=== PATIENT | female | born 1985 | race Caucasian/White ===

== ENCOUNTER 2020-12-26 10:52 | Emergency (ER) | payer MEDICARE, OTHER, SELFPAY ==
[2020-12-26 11:12] VITALS: BP 134/82; PULSE 104; RESP 19; TEMP 36.9; O2SAT 98; BMI 35.4
--- NOTE | 2020-12-26 11:25 | XR_ITS ---
WS: [id number] PORTABLE CHEST HISTORY: dyspnea COMPARISON: None available. Dual lead LEFT subclavian cardiac pacer. There is a loop recorder present. Lungs are clear and well expanded. No pleural effusion or pneumothorax. Cardiac size: Normal. Mediastinum/Aorta: Normal mediastinum. No osseous abnormality seen. XR/XR chest 1V portable [id number] IMPRESSION: Unremarkable portable chest.
[2020-12-26 11:39] VITALS: BP 127/76; PULSE 98; RESP 13; TEMP 36.8; O2SAT 96
[2020-12-26 11:41] VITALS: O2SAT 96
--- NOTE | 2020-12-26 12:06 | W.ED.GENADLT ---
HPI - General Adult General: Chief complaint: COVID symptoms Stated complaint: covid sx:cough,avis,throat pain,lungs burning Time Seen by Provider: 12/26/20 11:24 History of Present Illness: HPI narrative: CC: Shortness of breath, fever and generalized weakness HPI: This is a [35]yo patient w/ hx of SLE, pacemaker dependence, prior hospitalization for covid in August presenting to the ED with malaise, generalized weakness, coughm and fever at home x 3days. Since onset of symptoms, has had some shortness of breath and decreased PO intake. NO recent travel. Endorses no sick contacts around. Denies nausea/vomiting/diarrhea. Denies chest pain, diaphoresis, other GI or complaints. Denies any pleuritic chest pain, recent surgery/immobilization/travel, or hematemesis or hx of VTE in the past. Onset: 3 days ago Duration: ongoing for the last 3 days Location: home Severity: moderate Review of Systems Narrative: Constitutional: +subjective fever, +generalized weakness HEENT: No vision changes CV: No chest pain, no palpitations PULM: +cough, +dyspnea. GI: No abdominal pain, no N/V/D. : No dysuria MSKEL: No muscle pain SKIN: No new rashes, no lesions. NEURO: No headache, no focal weakness. HEME: No visible bruises PSYCH: Normal mood Physical Exam Narrative: EXAM NARRATIVE: Head: Atraumatic Eyes: PERRL, conjunctiva without injection ENT: Mucous membrane moist NECK: Supple without lymphadenopathy LUNGS: Coarse lung sounds, tachypnea, no crackles/wheezes/rhonchi on exam CV: RRR ABDOMEN: Soft, nontender EXTREMITY: Normal ROM SKIN: No rash or erythema NEURO: Awake and alert. No focal motor deficits. PSYCH: Normal mood and affect. Course Vital Signs: Vital signs: Vital Signs Temperature 98.3 F 12/26/20 11:39 Pulse Rate 98 12/26/20 11:39 Respiratory Rate 13 12/26/20 11:39 Blood Pressure 127/76 12/26/20 11:39 Pulse Oximetry 96 12/26/20 11:41 MDM - General Adult MDM Narrative: Medical decision making narrative: [35]yo patient presenting to the ED with shortness of breath, cough, and malaise concerning for pneumonia with findings of fever, decreased/junky breath sounds, and tachypnea. Workup today includes XR chest Defer lab work at this time given that the patient is well appearing with stable vital signs and without recent hospitalization or care facility stay. Given History, Exam, and Workup presentation most consistent with pneumonia.Presentation not consistent with PE, COPD exacerbation, Pneumothorax, TB, Atypical ACS, Esophageal Rupture, Toxic Exposure, Foreign Body Airway Obstruction. Workup: CXR Chest, COVID antigen/ COVID PCR send out, influenza Intervention: Tylenol 1gram, PO challenge, IVF Covid test pending. Have discussed with patient to follow-up with PCR tomorrow. X-ray chest did not show any signs of focal consolidations or findings. Influenza negative. Patient received 1 L IVF with improvement in heart rate. Patient is able to tolerate p.o. at this present time, I do not suspect acute decompensation. I have discussed the workup today with patient who agrees to go home with serial observation. I have give patient strict return precautions for any worsening symptoms including worsening dyspnea, exertional dyspnea, cough, chest pain, dehydration, or any other concerns that patient may have. Disposition: Discharge. Patient is given strict follow up with PCP in 24-48 hrs for reassessment. Patient agrees with everything discussed today. Lab Data: Labs: Lab Results 12/26/20 11:40 Influenza Type A A g Negative (Negative) Influenza Type B A g Negative (Negative) Imaging Data^: Other Imaging: Radiologist's impression: [address] [id number] ReportSigned Patient: Hui Alvarenga #: [id number]: 1985Acct#:[id number]/Sex: 35 / FADM Date: 12/26/20Loc: ERRoom/Bed:Attending Dr: Ordering Provider/Ordering MD: Golden Navarro MD Date of Service: 12/26/20 Procedure(s): XR chest 1V portable [id number] Accession Number(s): [id number] Report Number: [id number] WS: [id number] PORTABLE CHEST HISTORY: dyspnea COMPARISON: None available. Dual lead LEFT subclavian cardiac pacer. There is a loop recorder present. Lungs are clear and well expanded. No pleural effusion or pneumothorax. Cardiac size: Normal. Mediastinum/Aorta: Normal mediastinum. No osseous abnormality seen. XR/XR chest 1V portable [id number] IMPRESSION: Unremarkable portable chest. Dictated By:Barbara Wallace DOSigned By:Barbara Wallace DOSigned Date/Time:12/26/20 1202DD/ 1200 Discharge Plan Discharge Patient Disposition: Home Clinical Impression: Cough, Malaise, Nasal congestion Condition: Stable Prescriptions: New acetaminophen 500 mg tablet 500 mg PO Q6H PRN (Reason: pain) 5 Days Qty: 20 RF: 0 Discharge Orders: Discharge ED (Routine); Ordered 12/26/20 Ordered By: Golden Navarro Discharge Diet: Advance as tolerated Discharge Activity: Resume usual activity Patient Instructions: Acute Cough (ED) Activity Restrictions/Additional Instructions: Coem back to the emergency room recall for system if any fever or chills, if you have any new concerning complaints. Please follow-up with a primary care provider in the next 24 to 48 hours. Your Covid test will come back in the next few days. Our rn case manager hospice will have you follow-up with a primary care provider in the next few days. You would be expected to have a phone call with our rn case manager hospice who will put you on the schedule. Coding Level of Care Code ED Knife Edger for Halley Brooks
[2020-12-26 12:20] LABS: Influenza A by IFA Negative (Negative); Influenza B by IFA Negative (Negative)
[2020-12-26] MEDS: acetaminophen 500 mg Tablet 1000 MG PO (12:27)
[2020-12-26] MEDS: sodium chloride 0.9% 1,000 ML 999 ML IV (12:28)
[2020-12-26 14:41] LABS: SARS Covid-2 Antigen Negative (Negative)
[2020-12-27 13:23] LABS: Quest SARS-CoV-2 RNA NOT DETECTED (NOT DETECTED)
--- NOTE | 2020-12-27 16:30 | PC.NURSE ---
Patient notified of negative COVID result
--- NOTE | 2020-12-31 11:20 | DCPLANNER ---
district manager had message to speak with patient about getting established with a primary care physician. district manager called phone number [phone], unable to speak with patient at this time, a voicemail was left for patient to return egg caser phone call.
== END 2020-12-26 14:34 | disposition home or self-care (01) ==
PROVIDERS: Emergency Provider Emergency Medicine
DX: R05.9 Cough, unspecified (principal); R53.81 Other malaise; R09.81 Nasal congestion; Z20.822 Contact with and (suspected) exposure to COVID-19
CPT/HCPCS: 71045; 87426; 87635; 87804; 96360; 96361; 99284; 99291; J7030

== ENCOUNTER → 2021-04-23 14:36 | Outpatient (BNVA) | payer MEDICARE, OTHER, SELFPAY | PROVIDERS: Visit Provider Nurse Practitioner Family | DX: J02.9 Acute pharyngitis, unspecified (principal) | CPT/HCPCS: 87880 ==

== ENCOUNTER → 2021-05-13 10:10 | Outpatient (BNVA) | payer MEDICARE, OTHER, SELFPAY | PROVIDERS: Visit Provider Nurse Practitioner Family | DX: J02.9 Acute pharyngitis, unspecified (principal); Z20.822 Contact with and (suspected) exposure to COVID-19 | CPT/HCPCS: 87071; 87635; 87880 ==

== ENCOUNTER 2021-07-23 12:18 | Emergency (ER) | payer MEDICARE, MEDICAID, OTHER, SELFPAY ==
[2021-07-23 12:21] VITALS: BP 141/88; PULSE 101; RESP 14; TEMP 37.4; O2SAT 99; BMI 38.3
--- NOTE | 2021-07-23 12:39 | W.ED.SKABFB ---
HPI - Skin/Abscess/Foreign Bdy General: Chief complaint: General Medical Stated complaint: right eye swelling Time Seen by Provider: 07/23/21 12:28 Source: patient Mode of arrival: ambulatory Limitations: no limitations History of Present Illness: Patient is a 35-year-old female who presents to ED today with a complaint of right facial rash and swelling. Patient states yesterday she was outside in her [place] maintaining several acres of property and cutting trees and states when she awoke this morning she noticed some mild inferior periorbital swelling. She states since that time she has noticed worsening swelling and redness/rash. Patient has been treating with Benadryl at home without much relief. She has no ear pain. Dental pain. No neck swelling. MD complaint: rash Onset (ago): day(s) Tetanus up to date: yes Location: face Severity: mild Quality: burning Pain Consistency: constant Relieving factors: none Exacerbating factors: none Context: other (outside in field/[place] yesterday) Associated symptoms: Deny chills, fever(s), nausea or vomiting Treatments prior to arrival: Benadryl Review of Systems Const: Denies: fever(s), chills, body aches, fatigue or malaise Eyes: Denies: change in vision, blurry vision, photophobia, eye discomfort, eye discharge or eye redness ENMT: Reports: other (facial rash/swelling); Denies: throat pain, odynophagia, dental pain, ear or mastoid pain, ear discharge, nasal discharge, nasal congestion or post nasal drip Card: Denies: chest pain Resp: Denies: dyspnea GI: Denies: nausea or vomiting Musc: Denies: neck pain, back pain, extremity pain or joint pain Skin/Breast: Denies: rash Neuro: Denies: headache(s), numbness in extremities, weakness in extremities or sensory changes PFS ED PFSH: Surgical History History of permanent cardiac pacemaker placement Social History Smoking and tobacco status: current every day smoker Second hand smoke exposure: No Smoking risk assessment/counseling performed?: Yes Alcohol intake: never Desire information about alcohol rehabilitation?: No Counseling given: No Desire information about substance/drug rehabilitation?: No Counseling given: No Adopted: No Caregiver/support person: No Lives independently: Yes Housing: House Physical Exam Const: COMMON NORMALS: no acute distress, patient oriented x3, no limitations and alert GENERAL APPEARANCE: cooperative NUTRITIONAL APPEARANCE: obese ORIENTATION/CONSCIOUSNESS: Yes awake, Yes oriented to person, Yes oriented to place and Yes oriented to time HENMT: COMMON NORMALS: normocephalic, atraumatic, hearing grossly normal bilaterally, external ears normal, EAC's normal, TM's normal bilaterally, Normal external nose present, Normal nasal mucous membranes and turbinates present, moist oral mucous membranes, oropharynx normal, dentition normal and gingiva normal HEAD & SCALP: normal to inspection, normocephalic and atraumatic FACE & SINUS: sinuses nontender, erythema and edema; no crepitus and no ecchymosis FACE & SINUS IMAGES: 1. very mild swelling; erythematous rash that is not warm to touch NOSE: Normal external nose present and Normal nasal mucous membranes and turbinates present EXTERNAL EAR: Yes external ears normal EXTERNAL AUDITORY CANAL: EAC's normal TYMPANIC MEMBRANE: TM's normal bilaterally MOUTH: Normal oral and palatal mucosa present, lip normal and tongue normal THROAT: posterior oropharynx normal, tonsils normal and uvula midline Eye: GENERAL EYE: appearance normal, both eyes and all related structures OTHER: mild R inferior periorbital swelling Neck/C-Spine: COMMON NORMALS: full ROM, no lymphadenopathy and no meningeal signs Neuro: COMMON NORMALS: patient oriented x3 SENSORIUM/ORIENTATION: Yes alert, Yes oriented to person, Yes oriented to place and Yes oriented to time MENINGEAL SIGNS: Yes no meningeal signs Course Vital Signs: Vital signs: Vital Signs Temperature 99.3 F 07/23/21 12:21 Pulse Rate 101 H 07/23/21 12:21 Respiratory Rate 14 07/23/21 12:21 Blood Pressure 141/88 07/23/21 12:21 Pulse Oximetry 99 07/23/21 12:21 MDM - Skin/Abscess/Foreign Bdy Medicial Decision Making Rash beginning following being outside yesterday working in the [employer]. DDx includes allergic/contact dermatitis, facial cellulitis, and malar rash/photosensitivity reaction given her history of lupus. I do not see anything on physical exam that would make me favor facial cellulitis. Recommend placing patient on a steroid taper. She seems unhappy that I am not able to pinpoint a clear diagnosis for her rash. She is requesting that I do a swab or imaging of some sort to figure it out . I explained to patient that often times medical diagnoses are clinical. I tried to explain to her that often times clinicians use a combination of thorough history and physical examination to determine etiology and how unfortunately sometimes there are not specific tests (i.e swabs, imaging in this case) to help. There is nothing drainable for a swab/culture. CT scan would not yield any further insight into etiology. Ultimately patient was okay with treating with IM/PO steroids with return to ED precautions. Discharge Plan Discharge Patient Disposition: Home Clinical Impression: Facial dermatitis Condition: Stable Prescriptions: New prednisone 10 mg tablet 10 mg PO DAILY 10 Days Qty: 27 0RF Rx Instructions: 6 tabs on days 1-2, 5 tabs on days 3, 4 tabs on day 4, 3 tabs on day 5, 2 tabs on day 6, 1 tab on day 7 Discontinued clindamycin HCl 300 mg capsule 300 mg PO TID 7 Days Qty: 21 0RF Discharge Orders: Discharge ED (Routine); Ordered 07/23/21 Ordered By: Colleen Kerr Coding Level of Care Code ED Manager Of Financial Reporting for Chg Fwd Exam Expanded Problem Focused
== END 2021-07-23 13:18 | disposition home or self-care (01) ==
PROVIDERS: Emergency Provider Physician Assistant
DX: L30.9 Dermatitis, unspecified (principal)
CPT/HCPCS: 96372; 99283; J2930

== ENCOUNTER 2021-08-25 11:37 | Emergency (ER) | payer MEDICARE, MEDICAID, OTHER, SELFPAY ==
[2021-08-25 11:47] VITALS: BP 136/86; PULSE 82; RESP 18; TEMP 36.3; O2SAT 98; BMI 42.2
--- NOTE | 2021-08-25 11:59 | CT_ITS ---
WS: [id number] CT HEAD TECHNIQUE: Noncontrast CT of the head obtained from the skullbase to the vertex. CLINICAL INFORMATION: closed ehd injury COMPARISON: None. DLP: 1041.[address] scans at [facility] use at least one of these dose optimization techniques: automated e xposure control; mA and/or kV adjustment per patient size (includes targeted exams where dose is matc hed to clinical indication); or iterative reconstruction. FINDINGS: No evidence of intracranial hemorrhage or mass effect. Ventricular system and basal cisterns are alcocer nt. No extra-axial fluid collections. No evidence of mass or mass effect. Normal de la o-white different iation. Paranasal sinuses and mastoid air cells are well aerated. .Normal visualized soft tissues. CT/CT head wo con* [id number] IMPRESSION: 1. No evidence of intracranial hemorrhage or mass effect. 2. No acute intracranial findings.
--- NOTE | 2021-08-25 11:59 | XRR_ITS ---
PROCEDURE INFORMATION: Exam: XR Cervical Spine Exam date and time: 08/25/2021 12:12 PM Age: 35 years old Clinical indication: Injury or trauma; Fall; Blunt trauma TECHNIQUE: Imaging protocol: Radiologic exam of the cervical spine. Views: 2 or 3 views. COMPARISON: CR XR chest 1V portable [id number] 12/26/2020 11:43 AM FINDINGS: Bones/joints: Normal. No acute fracture. Normal alignment. Soft tissues: Unremarkable. XR/XR cervical spine 3V* [id number] IMPRESSION: No acute findings.
[2021-08-25 12:15] LABS: Basophils # 0.1 10^3/uL (0.0-0.1); Basophils % 0.7 %; Eosinophils # 0.2 10^3/uL (0.0-0.8); Eosinophils % 1.5 %; Hematocrit 39.7 % (37.0-47.0); Hemoglobin 13.1 g/dL (11.5-15.3); Lymphocytes # 2.8 10^3/uL (0.8-4.8); Mean Corpuscular Volume 87.8 fl (81-99); Mean Platelet Volume 11.5 fL (7.4-10.4); Monocytes # 0.7 10^3/uL (0.2-0.9); Monocytes % 6.5 %; Neutrophils # 6.51 10^3/uL (1.8-7.7); Neutrophils % 63.8 %; Nucleated Red Blood Cells % 0 %; Platelet Count 248 10^3/cmm (130-400); Red Blood Count 4.52 10^6/uL (4.1-5.3); Red Cell Distribution Width 13.5 % (12.1-15.1); White Blood Count 10.2 10^3/uL (4.0-10.0)
[2021-08-25 12:25] VITALS: BP 159/81; RESP 16; O2SAT 98
--- NOTE | 2021-08-25 12:37 | W.ED.FALL ---
HPI - Fall General: Chief Complaint: Fall Stated Complaint: Fall, Hit head, neck pain Time Seen by Provider: 08/25/21 11:59 Source: patient Mode of arrival: ambulatory History of Present Illness: 35-year-old female fell yesterday when she slipped outside on some wet ground landed on her back hit her head unsure if she lost consciousness she thinks she may have this morning she is more stiff particular in her neck. No vomiting no vision changes MD complaint: fall Onset (ago): day(s) (1) Fall from: standing Fall witnessed: yes, by family Place fall occurred: home Loss of consciousness: Unsure Prolonged down time: no Context: tripped/slipped Location of injury: head Associated symptoms-after fall: Denies abdominal pain or chest pain Review of Systems Const: Denies: fever(s), chills, body aches, change in appetite, fatigue or malaise ENMT: Denies: throat pain, ear or mastoid pain, nasal discharge or nasal congestion Card: Denies: chest pain, edema, dyspnea on exertion or orthopnea Resp: Denies: dyspnea, productive cough or non-productive cough GI: Denies: abdominal pain, nausea, vomiting, hematemesis, coffee ground emesis, diarrhea, constipation, bloating, hematochezia or melena : Denies: flank pain, difficulty voiding, dysuria, urinary frequency or urinary urgency Skin/Breast: Denies: rash or pruritus PFS ED PFSH: Medical History (Updated 08/25/21 @ 14:38 by Jose L Swan DO) Lupus Surgical History History of permanent cardiac pacemaker placement Social History Smoking and tobacco status: current every day smoker Second hand smoke exposure: No Smoking risk assessment/counseling performed?: Yes Alcohol intake: never Desire information about alcohol rehabilitation?: No Counseling given: No Desire information about substance/drug rehabilitation?: No Counseling given: No Adopted: No Caregiver/support person: No Lives independently: Yes Housing: House Physical Exam Const: GENERAL APPEARANCE: cooperative and comfortable ORIENTATION/CONSCIOUSNESS: Yes awake, Yes oriented to person, Yes oriented to place and Yes oriented to time HENMT: COMMON NORMALS: normocephalic, atraumatic and hearing grossly normal bilaterally HEAD & SCALP: normocephalic and atraumatic Neck/C-Spine: COMMON NORMALS: no JVD Resp: COMMON NORMALS: normal respiratory effort, No retractions, No use of accessory muscles and clear to auscultation bilaterally AUSCULTATION: clear to auscultation bilaterally Cardio: COMMON NORMALS: no JVD, regular rate, regular rhythm and No murmurs present (Cardio) RATE: regular rate RHYTHM: regular rhythm GI: COMMON NORMALS: Soft to palpation and No hepatosplenomegaly present AUSCULTATION: Yes normoactive bowel sounds PALPATION: Yes Soft to palpation, No Tenderness to palpation present (GI), No Guarding due to palpation present (GI) and Yes No hepatosplenomegaly present Extremity: COMMON NORMALS: normal to inspection, capillary refill normal, no clubbing, cyanosis or edema, no calf tenderness and no pedal edema Neuro: SENSORIUM/ORIENTATION: Yes oriented to person, Yes oriented to place and Yes oriented to time OTHER: Neurologically intact no focal logic deficits are noted Skin: COMMON NORMALS: no rashes or lesions noted GENERAL SKIN EXAM: no rashes or lesions noted Course Vital Signs: Vital signs: Vital Signs Temperature 97.3 F L 08/25/21 11:47 Pulse Rate 84 08/25/21 15:11 Respiratory Rate 18 08/25/21 14:25 Blood Pressure 124/90 08/25/21 15:11 Pulse Oximetry 100 08/25/21 15:11 MDM - Fall Medical Decision Making Labs and imaging reviewed. No fractures no intracranial bleeding that she is a mild concussion and sick fairly significant cervical strain. She has no upper extremity radiculopathy at this point treat conservatively with medicines rest she can wear soft collar if she feels it is a cyst however I did warn her not to wear it for too long as it can actually prolong recovery by weakening muscles. Follow-up with primary care if symptoms persist or worsen consider advanced imaging and/or possibly referral to physical therapy. Medical Records I reviewed the patient's medical records. Lab Data I reviewed the patient's lab results. : 08/25/21 12:10 08/25/21 12:10 Radiology Impressions Cervical Spine X-Ray 08/25/21 11:59 IMPRESSION: No acute findings. Head CT 08/25/21 11:59 IMPRESSION: 1. No evidence of intracranial hemorrhage or mass effect. 2. No acute intracranial findings. Laboratory Results WBC 10.2 10^3/uL (4.0-10.0) H 08/25/21 12:10 RBC 4.52 10^6/uL (4.1-5.3) 08/25/21 12:10 Hgb 13.1 g/dL (11.5-15.3) 08/25/21 12:10 Hct 39.7 % (37.0-47.0) 08/25/21 12:10 MCV 87.8 fl (81-99) 08/25/21 12:10 MCH 29.0 pg (28.0-34.0) 08/25/21 12:10 MCHC 33.0 g/dL (30.0-36.0) 08/25/21 12:10 RDW 13.5 % (12.1-15.1) 08/25/21 12:10 Plt Count 248 10^3/cmm (130-400) 08/25/21 12:10 MPV 11.5 fL (7.4-10.4) H 08/25/21 12:10 Neut % (Auto) 63.8 % 08/25/21 12:10 Lymph % (Auto) 27.0 % 08/25/21 12:10 [place] % (Auto) 6.5 % 08/25/21 12:10 Eos % (Auto) 1.5 % 08/25/21 12:10 Baso % (Auto) 0.7 % 08/25/21 12:10 Neut # (Auto) 6.51 10^3/uL (1.8-7.7) 08/25/21 12:10 Lymph # (Auto) 2.8 10^3/uL (0.8-4.8) 08/25/21 12:10 [place]ilion # (Auto) 0.7 10^3/uL (0.2-0.9) 08/25/21 12:10 Eos # (Auto) 0.2 10^3/uL (0.0-0.8) 08/25/21 12:10 Baso # (Auto) 0.1 10^3/uL (0.0-0.1) 08/25/21 12:10 Nucleated RBC % (auto) 0 % 08/25/21 12:10 Nucleated RBCs # 0.0 /100WBC 08/25/21 12:10 Sodium 136 mmol/L (136-145) 08/25/21 12:10 Potassium 4.0 mmol/L (3.5-5.1) 08/25/21 12:10 Chloride 103 mmol/L (98-107) 08/25/21 12:10 Carbon Dioxide 23 mmol/L (22-29) 08/25/21 12:10 Anion Gap 14.0 (5-19) 08/25/21 12:10 BUN 10 mg/dL (6-20) 08/25/21 12:10 Creatinine 0.7 mg/dL (0.5-0.9) 08/25/21 12:10 GFR Calculation 94.7 mL/min (90-130) 08/25/21 12:10 Glucose 151 mg/dL (65-115) H 08/25/21 12:10 Calculated Osmolality 284 mOsm/kg (285-295) L 08/25/21 12:10 Calcium 8.7 mg/dL (8.5-10.5) 08/25/21 12:10 Discharge Plan Discharge Patient Disposition: Home Clinical Impression: Cervicalgia, Concussion Condition: Stable Prescriptions: New hydrocodone-acetaminophen 5-325 mg tablet 1 tab PO Q6H PRN (Reason: pain) Qty: 10 0RF prednisone 20 mg tablet 20 mg PO TID Qty: 15 0RF Rx Instructions: 1 p.o. 3 times daily x3 days, 1 p.o. twice daily x2 days, 1 p.o. daily x2 days diclofenac sodium 75 mg tablet,delayed release (DR/EC) 75 mg PO Q12H PRN (Reason: pain) Qty: 20 0RF tizanidine 4 mg capsule 4 mg PO Q6H PRN (Reason: muscle spasticity) Qty: 30 0RF Rx Instructions: do not exceed 3 doses per 24 hrs Discharge Orders: Discharge ED (Routine); Ordered 08/25/21 Ordered By: Jose L Swan Discharge Diet: Usual diet Patient Instructions: Opioid Safety Activity Restrictions/Additional Instructions: Pain in her neck is caused by the fall and is from musculoskeletal source. If symptoms persist follow-up with primary care doctor they can reevaluate as appropriate. In the meantime you can use medications that were prescribed today for symptom relief. If you like and you find it helpful you can use a soft cervical collar for 3 to 5 days. Avoid prolonged use as it can prolong the recovery. Coding Level of Care Code ED Pattern Drum Maker for Chg Fwd Exam Comprehensive
[2021-08-25 12:45] LABS: Blood Urea Nitrogen 10 mg/dL (6-20); Calcium 8.7 mg/dL (8.5-10.5); Carbon Dioxide 23 mmol/L (22-29); Chloride 103 mmol/L (98-107); Glomerular Filtration Rate 94.7 mL/min (90-130); Glucose 151 mg/dL (65-115); Osmolality Calculated 284 mOsm/kg (285-295); Sodium 136 mmol/L (136-145)
[2021-08-25] MEDS: orphenadrine 30 mg/mL Inj 2 mL 60 MG IVP (12:52)
[2021-08-25] MEDS: ketorolac 30 mg/mL INJ IVP (12:52)
[2021-08-25 13:25] VITALS: BP 155/96; RESP 16; O2SAT 98
[2021-08-25 14:25] VITALS: BP 124/90; RESP 18; O2SAT 98
[2021-08-25 15:11] VITALS: BP 124/90; PULSE 84; O2SAT 100
== END 2021-08-25 15:13 | disposition home or self-care (01) ==
PROVIDERS: Emergency Provider Family Medicine
DX: S06.0X9A Concussion with loss of consciousness of unspecified duration, initial encounter (principal); W01.0XXA Fall on same level from slipping, tripping and stumbling without subsequent striking against object, initial encounter; M54.2 Cervicalgia
CPT/HCPCS: 70450; 72040; 80048; 85025; 96374; 96375; 99284; J1885; J2360

== ENCOUNTER 2022-03-29 09:16 | Outpatient (CLI) | payer MEDICARE, OTHER, SELFPAY ==
--- NOTE | 2022-03-29 09:32 | US_ITS ---
WS: [id number] RIGHT UPPER QUADRANT ULTRASOUND HISTORY: ELEVATED LIVER FUNCTION TESTS COMPARISON: None available. Technically difficult evaluation of the RIGHT upper quadrant. Liver: 17.7 cm in length. Mildly enlarged liver with marked attenuation from hepatic steatosis. The e ntire liver is not well visualized. No bile duct dilatation. Portal Vein: Normal hepatopetal flow with monophasic waveform. Gallbladder: Normally distended gallbladder with no stones or wall thickening. CBD: 0.3 cm Pancreas: Tail is obscured. No pancreatic duct enlargement identified. Right kidney: 11.4 cm in length. Normal size and echogenicity. No hydronephrosis or mass. Aorta and IVC: Unremarkable abdominal aorta and IVC. No ascites. US/US gall bladder [id number] IMPRESSION: 1. Mild hepatomegaly with severe attenuation which is probably from hepatic st eatosis. The entire liver is not well visualized. 2. Negative gallbladder.
== END 2022-03-29 09:17 | disposition home or self-care (01) ==
PROVIDERS: PCP Nurse Practitioner Family; Visit Provider Nurse Practitioner Family
DX: R79.89 Other specified abnormal findings of blood chemistry (principal)
CPT/HCPCS: 76705

== ENCOUNTER → 2022-03-31 10:13 | Outpatient (BNVA) | payer MEDICARE, OTHER, SELFPAY | PROVIDERS: PCP Nurse Practitioner Family; Visit Provider Podiatrist Foot & Ankle Surgery | DX: M65.9 Synovitis and tenosynovitis, unspecified (principal); M21.622 Bunionette of left foot | CPT/HCPCS: 73630; 99204 ==

== ENCOUNTER 2022-04-12 15:23 | Outpatient (CLI) | payer MEDICARE, OTHER, SELFPAY | END 2022-04-12 15:24 | disposition home or self-care (01) | LOC: SPT 15:24 | PROVIDERS: PCP Nurse Practitioner Family; Visit Provider Podiatrist Foot & Ankle Surgery | DX: Z46.89 Encounter for fitting and adjustment of other specified devices (principal); M79.672 Pain in left foot; M65.9 Synovitis and tenosynovitis, unspecified; M19.072 Primary osteoarthritis, left ankle and foot; M65.872 Other synovitis and tenosynovitis, left ankle and foot; M21.622 Bunionette of left foot | CPT/HCPCS: 97760; 99214; L4397 ==

== ENCOUNTER 2022-04-20 10:11 | Emergency (ER) | payer MEDICARE, OTHER, SELFPAY ==
--- NOTE | 2022-04-20 10:16 | XR_ITS ---
WS: [id number] Left ankle, 3 views, 04/20/2022 Clinical Data: pain Comparison: None. Findings: No fractures or dislocations are seen. The ankle mortise is normal. The talus and calcaneus are unrem arkable. No soft tissue swelling over the medial or lateral malleolus is seen. There is a plantar spur. XR/XR ankle LT min 3V* [id number] Impression: Negative left ankle.
--- NOTE | 2022-04-20 10:16 | XR_ITS ---
WS: [id number] Left foot, 3 views, 04/20/2022 Clinical Data: pain Comparison: None. Findings: No new fractures or dislocations are seen. No bone destruction or erosion is noted. The joint spaces and soft tissues are normal. There is deformity of the distal left fifth metatarsal which may be from an old fracture. There is a plantar spur. XR/XR foot LT min 3V* [id number] Impression: Probable old healed left distal fifth metatarsal fracture.
[2022-04-20 10:20] VITALS: BP 141/89; PULSE 92; TEMP 36.6; O2SAT 98; BMI 38.9
[2022-04-20 10:31] VITALS: BP 139/106; PULSE 92; RESP 16; O2SAT 98
[2022-04-20 11:23] VITALS: BP 125/74
--- NOTE | 2022-04-20 12:01 | ED_ITS ---
HPI - Extremity Problem General: Chief complaint: Extremity Injury, Lower Stated complaint: left foot and ankle pain Time Seen by Provider: 04/20/22 10:12 Source: patient Mode of arrival: ambulatory History of Present Illness: 36-year-old female presents emergency room complaint of left ankle and foot pain. Nurse reported she ambulated to the room. She admits to previous injuries and states she had multiple falls affecting her foot. She has seen podiatry previously as well. They have scheduled her for an MRI but it is a couple of weeks off. She is demanding that an MRI be done emergently in the emergency room. She is not able to identify a recent new injury. Patient has been taking anti-inflammatories but states she cannot take them regularly because she has lupus and she has been told she has a liver issue and should not take many anti-inflammatories. MD Complaint: joint pain Onset (ago): month(s) Pain Consistency: constant Location: left (Ankle-foot) Relieving factors: nothing Exacerbating factors: weight bearing and walking Associated symptoms: Deny rash Review of Systems Musc: Reports: extremity pain and joint pain Skin/Breast: Denies: rash or pruritus PFSH ED PFSH: Medical History Lupus Surgical History History of permanent cardiac pacemaker placement Social History Smoking and tobacco status: current every day smoker Second hand smoke exposure: No Smoking risk assessment/counseling performed?: Yes Alcohol intake: never Desire information about alcohol rehabilitation?: No Counseling given: No Desire information about substance/drug rehabilitation?: No Counseling given: No Adopted: No Caregiver/support person: No Lives independently: Yes Housing: House Physical Exam Const: GENERAL APPEARANCE: cooperative ORIENTATION/CONSCIOUSNESS: Yes awake, Yes oriented to person, Yes oriented to place and Yes oriented to time HENMT: COMMON NORMALS: normocephalic, atraumatic and hearing grossly normal bilaterally HEAD & SCALP: normocephalic and atraumatic Resp: COMMON NORMALS: normal respiratory effort and No use of accessory muscles Extremity: COMMON NORMALS: normal to inspection, capillary refill normal, no clubbing, cyanosis or edema and no pedal edema Neuro: SENSORIUM/ORIENTATION: Yes oriented to person, Yes oriented to place and Yes oriented to time Skin: COMMON NORMALS: no rashes or lesions noted GENERAL SKIN EXAM: no rashes or lesions noted Course Vital Signs: Vital signs: Vital Signs Temperature 97.9 F 04/20/22 10:20 Pulse Rate 92 04/20/22 10:31 Respiratory Rate 16 04/20/22 10:31 Blood Pressure 125/74 04/20/22 11:23 Pulse Oximetry 98 04/20/22 10:31 Oxygen Delivery Me thod 04/20/22 10:31 MDM - Extremity (Nontraumatic) Medical Decision Making X-ray of the ankle and the foot reviewed there is evidence of old fracture in the fifth metatarsal on the left but there is no new fractures. Examination of the foot there is no evidence of swelling or ecchymosis she was ambulatory back to the room without any difficulty according to the nurse. She is quite angry that we are not doing an MRI she has one scheduled for next month there evidently is prior ordered by podiatry. She states it is getting worse but she cannot identify any recent injury she refers to previous injuries but cannot give me a timeframe on the most recent. She feels she cannot ambulate cannot function and something must be done immediately. Offered her posterior splint and crutches she said that would not work she refused to use them she thinks it will make her fall and would not make her functional enough around her home to do tasks she states she needs to do. She asked for a boot/Cam walker. We do not stock those the emergency room she asked if I would write a prescription for 1. I told her we would write a prescription and could not get filled at home but I am not sure the insurance will cover it. Recommend she follow-up with podiatry as scheduled. We will ask case management to get her on the list to have her MRI done sooner if there is a cancellation. Continue previously prescribed medications from podiatry for the her foot pain also gave her a steroid taper. Medical Records I reviewed the patient's medical records. Lab Data Radiology Impressions Ankle X-Ray 04/20/22 10:16 Impression: Negative left ankle. Foot X-Ray 04/20/22 10:16 Impression: Probable old healed left distal fifth metatarsal fracture. Discharge Plan Discharge Patient Disposition: Home Clinical Impression: Ankle sprain and strain Condition: Stable Prescriptions: New Medrol (Brayden) 4 mg tablets,dose pack See Rx Instructions .ROUTE .COMPLEX Qty: 21 0RF Rx Instructions: orally per package directions No Action (DME) night splint See Rx Instructions .Route .MEDSUPPLY Qty: 1 0RF Rx Instructions: As directed (DME) Custom molded orthotics (insoles) See Rx Instructions .Route .MEDSUPPLY Qty: 1 0RF Rx Instructions: As directed by [employer] diclofenac sodium [Voltaren Arthritis Pain] 1 % gel 4 g topical QID 30 Days Qty: 100 2RF Rx Instructions: apply to single knee, ankle, foot; for foot includes sole/toes/top of foot (DME) Cam Boot to the Left See Rx Instructions .Route .MEDSUPPLY Qty: 1 0RF Rx Instructions: As directed hydrocodone-acetaminophen 5-325 mg tablet 1 tab PO Q6H PRN (Reason: pain) Qty: 10 0RF prednisone 20 mg tablet 20 mg PO TID Qty: 15 0RF Rx Instructions: 1 p.o. 3 times daily x3 days, 1 p.o. twice daily x2 days, 1 p.o. daily x2 days diclofenac sodium 75 mg tablet,delayed release (DR/EC) 75 mg PO Q12H PRN (Reason: pain) Qty: 20 0RF tizanidine 4 mg capsule 4 mg PO Q6H PRN (Reason: muscle spasticity) Qty: 30 0RF Rx Instructions: do not exceed 3 doses per 24 hrs Discharge Orders: Discharge ED (Routine); Ordered 04/20/22 Ordered By: Jose L Swan Referrals: Charlene Peraza FNP [Primary Care Provider] - Discharge Diet: Usual diet Discharge Activity: Resume usual activity Activity Restrictions/Additional Instructions: Recommend non-weightbearing due to pain. Follow up with podiatry clinic. Case management will try to move up your MRI if there are any cancellations. Coding Level of Care Code ED Polisher [employer] Buffer for Halley Brooks
--- NOTE | 2022-04-21 08:41 | DCPLANNER ---
heel caser had message to check with centralized scheduling to see if patients MRI could be rescheduled to an earlier date. showroom manager called centralized scheduling and spoke with Lissettea was told that an appointment was available today at 9:30, heel caser called patient and asked patient if she would be able to make an appointment today at 9:30 - patient stated that she would not able to make that appointment. Patients appointment will remain for the previously scheduled appointment.
== END 2022-04-20 11:24 | disposition home or self-care (01) ==
PROVIDERS: Emergency Provider Family Medicine; PCP Nurse Practitioner Family
DX: S93.402A Sprain of unspecified ligament of left ankle, initial encounter (principal); X58.XXXA Exposure to other specified factors, initial encounter
CPT/HCPCS: 73610; 73630; 99283

== ENCOUNTER 2022-04-20 14:22 | Outpatient (CLI) | payer MEDICARE, OTHER, SELFPAY | END 2022-04-20 14:23 | disposition home or self-care (01) | LOC: SPT 14:23 | PROVIDERS: PCP Nurse Practitioner Family; Visit Provider Podiatrist Foot & Ankle Surgery | DX: Z46.89 Encounter for fitting and adjustment of other specified devices (principal); S93.402D Sprain of unspecified ligament of left ankle, subsequent encounter; X58.XXXD Exposure to other specified factors, subsequent encounter | CPT/HCPCS: L4361 ==

== ENCOUNTER → 2022-05-24 09:03 | Outpatient (BNVA) | payer MEDICARE, OTHER, SELFPAY | PROVIDERS: PCP Nurse Practitioner Family; Visit Provider Podiatrist Foot & Ankle Surgery | DX: M65.872 Other synovitis and tenosynovitis, left ankle and foot (principal); M19.072 Primary osteoarthritis, left ankle and foot; M21.622 Bunionette of left foot | CPT/HCPCS: 99213 ==

== ENCOUNTER → 2022-05-25 09:40 | Outpatient (BNVA) | payer MEDICARE, OTHER, SELFPAY | PROVIDERS: PCP Nurse Practitioner Family; Referring Provider Nurse Practitioner Family; Visit Provider Obstetrics & Gynecology | DX: E28.2 Polycystic ovarian syndrome (principal) | CPT/HCPCS: 80053; 83001; 84145; 84403; 84443; 85025 ==

== ENCOUNTER → 2022-06-16 10:48 | Outpatient (BNVA) | payer MEDICARE, OTHER, SELFPAY | PROVIDERS: PCP Nurse Practitioner Family; Visit Provider Obstetrics & Gynecology | DX: Z01.419 Encounter for gynecological examination (general) (routine) without abnormal findings (principal) | CPT/HCPCS: 87624 ==

== ENCOUNTER 2022-07-08 10:47 | Outpatient (CLI) | payer MEDICARE, OTHER, SELFPAY | END 2022-07-08 10:48 | disposition home or self-care (01) | LOC: SPT 10:47 | PROVIDERS: PCP Nurse Practitioner Family; Visit Provider Podiatrist Foot & Ankle Surgery | DX: Z46.89 Encounter for fitting and adjustment of other specified devices (principal); M19.079 Primary osteoarthritis, unspecified ankle and foot; M21.622 Bunionette of left foot; M65.9 Synovitis and tenosynovitis, unspecified | CPT/HCPCS: 97760; L3030 ==

== ENCOUNTER 2022-07-09 09:38 | Outpatient (CLI) | payer MEDICARE, OTHER, SELFPAY ==
--- NOTE | 2022-07-09 09:55 | MM_ITS ---
WS: [id number] DIAGNOSTIC BILATERAL DIGITAL BREAST TOMOSYNTHESIS MAMMOGRAPHY WITH CAD RIGHT breast ultrasound, limited. HISTORY: SCREENING COMPARISON: None available. TECHNIQUE: Bilateral craniocaudad, mediolateral oblique, and mediolateral views are submitted with to mosynthesis and SM. Spot compression RIGHT CC. Computer aided detection utilized. Breast composition: The breasts are almost entirely fatty. Triangular marker is placed along the medi al RIGHT breast at the palpable site. There is no underlying abnormality identified. Normal soft tiss ues. Cardiac loop recorder noted along the posterior medial LEFT breast. There is an additional gener ator for cardiac pacer along the superior LEFT breast. Benign calcification anterior LEFT breast. RIGHT breast: Limited. Ultrasound directed to the 10:00 axis of the RIGHT breast at the palpable site. No mass or distortio n. Normal soft tissues. MM/[place] [id number] IMPRESSION: BI-RADS: 2-Benign FOLLOW UP: 1 Year Follow-up
--- NOTE | 2022-07-09 11:07 | US_ITS ---
WS: [id number] DIAGNOSTIC BILATERAL DIGITAL BREAST TOMOSYNTHESIS MAMMOGRAPHY WITH CAD RIGHT breast ultrasound, limited. HISTORY: SCREENING COMPARISON: None available. TECHNIQUE: Bilateral craniocaudad, mediolateral oblique, and mediolateral views are submitted with to mosynthesis and SM. Spot compression RIGHT CC. Computer aided detection utilized. Breast composition: The breasts are almost entirely fatty. Triangular marker is placed along the medi al RIGHT breast at the palpable site. There is no underlying abnormality identified. Normal soft tiss ues. Cardiac loop recorder noted along the posterior medial LEFT breast. There is an additional gener ator for cardiac pacer along the superior LEFT breast. Benign calcification anterior LEFT breast. RIGHT breast: Limited. Ultrasound directed to the 10:00 axis of the RIGHT breast at the palpable site. No mass or distortio n. Normal soft tissues. US/US breast RT limited* [id number] IMPRESSION: BI-RADS: 2-Benign FOLLOW UP: 1 Year Follow-up
== END 2022-07-09 09:39 | disposition home or self-care (01) ==
LOC: RAD 09:40
PROVIDERS: PCP Nurse Practitioner Family; Visit Provider Nurse Practitioner Family
DX: N63.11 Unspecified lump in the right breast, upper outer quadrant (principal); R92.1 Mammographic calcification found on diagnostic imaging of breast; N63.20 Unspecified lump in the left breast, unspecified quadrant
CPT/HCPCS: 76642; 77062; G0279

== ENCOUNTER 2022-08-12 21:09 | Emergency (ER) | payer MEDICARE, OTHER, SELFPAY ==
[2022-08-12 21:16] VITALS: BP 151/97; PULSE 95; RESP 18; TEMP 36.6; O2SAT 98; BMI 38.9
--- NOTE | 2022-08-12 21:24 | ED_ITS ---
HPI - Dental/Oral General: Chief complaint: Dental/Oral Stated complaint: tooth pain Time Seen by Provider: 08/12/22 21:17 History of Present Illness: 36-year-old female comes in today with complaints of right lower jaw pain. Patient has a third molar that is decayed and has waxed and waned with pain and abscesses. Patient reports over the last 2 days she has had an increase in pain and discomfort. No facial swelling is noted. Patient is managing secretions well. Review of Systems General: Reports: 10 or more systems reviewed and unremarkable except in HPI and below Card: Denies: chest pain Resp: Denies: dyspnea Musc: Reports: extremity pain Skin/Breast: Denies: rash PFSH ED PFSH: Medical History Lupus Surgical History History of permanent cardiac pacemaker placement Physical Exam Const: COMMON NORMALS: alert HENMT: COMMON NORMALS: normocephalic HEAD & SCALP: normocephalic TEETH & GINGIVA: Yes other (Third molar right lower jaw significant decay gingival erythema) Neck/C-Spine: COMMON NORMALS: full ROM Resp: COMMON NORMALS: normal respiratory effort and clear to auscultation bilaterally AUSCULTATION: clear to auscultation bilaterally Cardio: COMMON NORMALS: regular rate and regular rhythm RATE: regular rate RHYTHM: regular rhythm Extremity: COMMON NORMALS: normal to inspection Neuro: SENSORIUM/ORIENTATION: Yes alert Skin: COMMON NORMALS: turgor normal GENERAL SKIN EXAM: turgor normal Course Vital Signs: Vital signs: Vital Signs Temperature 98 F 08/12/22 21:16 Pulse Rate 95 08/12/22 21:16 Respiratory Rate 18 08/12/22 21:16 Blood Pressure 151/97 08/12/22 21:16 Pulse Oximetry 98 08/12/22 21:16 [facility] - Dental/Oral Medical Decision Making 36-year-old female comes in today for complaints right lower jaw pain and discomfort. On exam patient has a carious right third molar with some mild gingival erythema and swelling. Posterior pharynx is normal. Vital signs are normal. Except for some elevated blood pressure. Differential diagnosis includes but not limited to dental caries, dental abscess, tooth ache. No signs of serious illness is noted. Patient is stable. Patient will be started on Augmentin 1 tablet twice a day for 7 days. Patient was given 7 tablets of hydrocodone to use for severe pain. Recommend follow-up with dentist. Return to ED for new concerns. Discharge Plan Discharge Patient Disposition: Home Clinical Impression: Toothache Condition: Stable Prescriptions: New hydrocodone-acetaminophen 5-325 mg tablet 1 tab PO Q8H PRN (Reason: pain (scale score 7-10)) Qty: 7 0RF amoxicillin-pot clavulanate 875-125 mg tablet 1 tab PO BID Qty: 14 0RF No Action metoprolol succinate 25 mg tablet extended release 24 hr 25 mg PO DAILY (DME) night splint See Rx Instructions .Route .MEDSUPPLY Qty: 1 0RF Rx Instructions: As directed medroxyprogesterone [Provera] 10 mg tablet 10 mg PO DAILY Qty: 30 4RF Rx Instructions: take the -10th of the month diclofenac sodium [Voltaren Arthritis Pain] 1 % gel 4 g topical QID 30 Days Qty: 100 2RF Rx Instructions: apply to single knee, ankle, foot; for foot includes sole/toes/top of foot (DME) Sole Supports See Rx Instructions .Route .MEDSUPPLY Qty: 1 0RF Rx Instructions: As directed tizanidine 4 mg capsule 4 mg PO Q6H PRN (Reason: muscle spasticity) Qty: 30 0RF Rx Instructions: do not exceed 3 doses per 24 hrs Discharge Orders: Discharge ED (Routine); Ordered 08/12/22 Ordered By: Michi Singh Referrals: Charlene Peraza FNP [Primary Care Provider] - Discharge Diet: Usual diet Discharge Activity: Increase activity as tolerated Patient Instructions: Toothache (ED), Opioid Safety Activity Restrictions/Additional Instructions: Healthy diet and activity. Take medications as directed. Use acetaminophen and ibuprofen to control pain. Use hydrocodone for severe pain. Take antibiotics 1 tablet twice a day. Follow-up with dentist for definitive care. Coding Level of Care Code ED [employer] Weapon System Operator for Halley Brooks
[2022-08-12] MEDS: amoxicillin-clav 875-125 mg Tablet 1 TAB PO (21:38)
--- NOTE | 2022-08-12 21:39 | PC.NURSE ---
PT WAS TRYING TO PULL TOOTH OUT WITH HER FINGERS BECAUSE IF SHE STARTED BLEEDING WE WOULD HAVE TO STITCH HER GUMS BACK TOGETHER. I HAD TO URGE PATIENT OUT FOR DC BC SHE DID NOT WANT TO LEAVE BEFORE SHE PULLED HER TOOTH OUT. PT STATED SHE WAS GOING TO GO TO [facility] TO GET PLIARS O PULL IT OUT.
[2022-08-12] MEDS: HYDROcodone-acetaminophen 7.5-325 mg Tablet 1 TAB PO (21:43)
== END 2022-08-12 21:45 | disposition home or self-care (01) ==
PROVIDERS: Emergency Provider Nurse Practitioner Family; PCP Nurse Practitioner Family
DX: K08.89 Other specified disorders of teeth and supporting structures (principal); M32.9 Systemic lupus erythematosus, unspecified
CPT/HCPCS: 99283

== ENCOUNTER 2022-12-29 08:33 | Emergency (ER) | payer MEDICARE, OTHER, MEDICAID, SELFPAY ==
[2022-12-29 08:37] VITALS: BP 162/107; PULSE 111; RESP 18; TEMP 36.9; O2SAT 99; BMI 37.2
--- NOTE | 2022-12-29 08:37 | ECG_ITS ---
[facility] Test Date: 2022-12-29 Pat Name: Hui Alvarenga Department: Room: Gender: Female [employer] Custodian: : 1985 Requested By: Jose L Torres Order Number: [id number] Carmen MD: Ruel Castillo M.D. Measurements Intervals [place] Rate: 113 P: 52 TX: 144 QRS: 41 QRSD: 82 T: 42 QT: 327 QTc: 449 Interpretive Statements SINUS TACHYCARDIA NONSPECIFIC T-WAVE ABNORMALITY ABNORMAL RHYTHM ECG INTERPRETATION BASED ON A DEFAULT AGE OF 40 YEARS No previous ECG available for comparison Electronically Signed On 12-30-2022 0:40:07 OUTSIDE FOOD SERVER by Ruel Castillo M.D. [id number]
--- NOTE | 2022-12-29 08:50 | XR_ITS ---
WS: [id number] Portable AP upright chest, 12/29/2022 Clinical Data: dyspnea/cough Comparison: Portable chest, 12/26/2020 Findings: No nodules, masses or effusions are seen. The heart is normal. The pulmonary vascularity is not increased. No pneumonia or pneumothorax is seen. The cardiac pacemaker remains in same position. There is a recording device overlying the left cardiac border. Impression: Negative for acute cardiopulmonary disease.
--- NOTE | 2022-12-29 09:07 | PC.PHAR ---
pt states she takes no prescription medications-
[2022-12-29 09:16] LABS: Basophils # 0.1 10^3/uL (0.0-0.1); Basophils % 0.4 %; Eosinophils # 0.5 10^3/uL (0.0-0.8); Hematocrit 43.4 % (36-47); Lymphocytes # 2.2 10^3/uL (0.8-4.8); Lymphocytes % 14.2 %; Mean Corpuscular HGB Conc 31.6 g/dL (30-55); Mean Corpuscular Hemoglobin 28.2 pg (27-33); Mean Corpuscular Volume 89.5 fl (85-98); Mean Platelet Volume 10.9 fL (7.4-10.4); Monocytes # 1.1 10^3/uL (0.2-0.9); Neutrophils # 11.48 10^3/uL (1.8-7.7); Neutrophils % 74.9 %; Nucleated Red Blood Cells % 0 %; Platelet Count 273 10^3/cmm (157-399); Red Blood Count 4.85 10^6/uL (3.85-5.65); Red Cell Distribution Width 13.5 % (12.1-15.1); White Blood Count 15.32 10^3/uL (3.29-11.43)
[2022-12-29 09:30] LABS: Albumin Level 4.2 g/dL (3.5-5.2)
[2022-12-29 09:34] LABS: Alanine Aminotransferase 43 U/L (0-33); Alkaline Phosphatase 77 U/L (35-105); Anion Gap 17.4 (5-19); Aspartate Amino Transferase 22 U/L (0-32); Blood Urea Nitrogen 9 mg/dL (6-20); Calcium 9.4 mg/dL (8.5-10.5); Carbon Dioxide 22 mmol/L (22-29); Chloride 104 mmol/L (98-107); Globulin 2.8 g/dL (1.3-4.6); Glomerular Filtration Rate 93.6 mL/min (90-130); Glucose 99 mg/dL (65-115); Osmolality Calculated 287 mOsm/kg (285-295); Potassium 4.4 mmol/L (3.5-5.1); Sodium 139 mmol/L (136-145); Total Bilirubin 0.6 mg/dL (0.15-1.2)
[2022-12-29 09:36] VITALS: BP 100/64; PULSE 67; RESP 18; O2SAT 98
--- NOTE | 2022-12-29 09:38 | ED_ITS ---
HPI - General Adult General: Chief complaint: General Medical Stated complaint: cough, fever, cp, head pain Time Seen by Provider: 12/29/22 08:50 Source: patient Mode of arrival: ambulatory History of Present Illness: 37-year-old female presents to the emergency room with complaints of cough congestion last couple of days. Cough has been minimally productive. Myalgias and some diarrhea as well. Headache fever at home. Onset (ago): minute(s) Exacerbating factors: none Associated symptoms: Reports cough, dyspnea, fevers/chills, malaise, nausea, short of breath and weakness; Deny chest pain, confusion, diaphoresis, decreased appetite, headache(s), rash, palpitations, seizures, syncope, vomiting or other Review of Systems Const: Reports: fever(s) and malaise; Denies: diaphoresis Card: Denies: chest pain, palpitations or syncope Resp: Reports: dyspnea GI: Reports: nausea; Denies: vomiting : Denies: dysuria, urinary frequency or urinary urgency Musc: Denies: neck pain or back pain Skin/Breast: Denies: rash Neuro: Denies: headache(s) or confusion PFS ED PFSH: Medical History Lupus Surgical History History of permanent cardiac pacemaker placement Physical Exam Const: COMMON NORMALS: no acute distress GENERAL APPEARANCE: cooperative and comfortable ORIENTATION/CONSCIOUSNESS: Yes awake, Yes oriented to person, Yes oriented to place and Yes oriented to time HENMT: COMMON NORMALS: normocephalic, atraumatic and hearing grossly normal bilaterally HEAD & SCALP: normocephalic and atraumatic Resp: COMMON NORMALS: normal respiratory effort, No retractions, No use of accessory muscles and clear to auscultation bilaterally AUSCULTATION: clear to auscultation bilaterally Cardio: COMMON NORMALS: regular rate, regular rhythm and No murmurs present (Cardio) RATE: regular rate RHYTHM: regular rhythm GI: COMMON NORMALS: Soft to palpation and No hepatosplenomegaly present AUSCULTATION: Yes normoactive bowel sounds PALPATION: Yes Soft to palpation, No Tenderness to palpation present (GI), No Guarding due to palpation present (GI) and Yes No hepatosplenomegaly present Extremity: COMMON NORMALS: normal to inspection, capillary refill normal, no clubbing, cyanosis or edema, no calf tenderness and no pedal edema Neuro: SENSORIUM/ORIENTATION: Yes oriented to person, Yes oriented to place and Yes oriented to time Skin: COMMON NORMALS: no rashes or lesions noted GENERAL SKIN EXAM: no rashes or lesions noted Course 2 Vital Signs: Vital signs: Vital Signs Temperature 98.5 F 12/29/22 08:37 Pulse Rate 93 12/29/22 10:47 Respiratory Rate 18 12/29/22 10:47 Blood Pressure 127/89 12/29/22 10:47 Pulse Oximetry 94 12/29/22 10:47 Oxygen Delivery Me thod Room Air 12/29/22 10:47 MDM - General Adult Medical Decision Making Exam normal. Moderately elevated white count normal chest x-ray. Suspect viral upper respiratory infection flu and COVID are negative. Supportive cares and follow-up as needed Medical Records I reviewed the patient's medical records. Lab Data I reviewed the patient's lab results. 12/29/22 09:08 12/29/22 09:08 Laboratory Results WBC 15.32 10^3/uL (3.29-11.43) H 12/29/22 09:08 RBC 4.85 10^6/uL (3.85-5.65) 12/29/22 09:08 Hgb 13.70 g/dL (11.27-16.99) 12/29/22 09:08 Hct 43.4 % (36-47) 12/29/22 09:08 MCV 89.5 fl (85-98) 12/29/22 09:08 MCH 28.2 pg (27-33) 12/29/22 09:08 MCHC 31.6 g/dL (30-55) 12/29/22 09:08 RDW 13.5 % (12.1-15.1) 12/29/22 09:08 Plt Count 273 10^3/cmm (157-399) 12/29/22 09:08 MPV 10.9 fL (7.4-10.4) H 12/29/22 09:08 Neut % (Auto) 74.9 % 12/29/22 09:08 Lymph % (Auto) 14.2 % 12/29/22 09:08 Pepin % (Auto) 7.0 % 12/29/22 09:08 Eos % (Auto) 3.0 % 12/29/22 09:08 Baso % (Auto) 0.4 % 12/29/22 09:08 Neut # (Auto) 11.48 10^3/uL (1.8-7.7) H 12/29/22 09:08 Lymph # (Auto) 2.2 10^3/uL (0.8-4.8) 12/29/22 09:08 Pepin # (Auto) 1.1 10^3/uL (0.2-0.9) H 12/29/22 09:08 Eos # (Auto) 0.5 10^3/uL (0.0-0.8) 12/29/22 09:08 Baso # (Auto) 0.1 10^3/uL (0.0-0.1) 12/29/22 09:08 Nucleated RBC % (auto) 0 % 12/29/22 09:08 Nucleated RBCs # 0.0 /100WBC 12/29/22 09:08 Sodium 139 mmol/L (136-145) 12/29/22 09:08 Potassium 4.4 mmol/L (3.5-5.1) 12/29/22 09:08 Chloride 104 mmol/L (98-107) 12/29/22 09:08 Carbon Dioxide 22 mmol/L (22-29) 12/29/22 09:08 Anion Gap 17.4 (5-19) 12/29/22 09:08 BUN 9 mg/dL (6-20) 12/29/22 09:08 Creatinine 0.7 mg/dL (0.5-0.9) 12/29/22 09:08 GFR Calculation 93.6 mL/min (90-130) 12/29/22 09:08 Glucose 99 mg/dL (65-115) 12/29/22 09:08 Calculated Osmolality 287 mOsm/kg (285-295) 12/29/22 09:08 Calcium 9.4 mg/dL (8.5-10.5) 12/29/22 09:08 Total Bilirubin 0.6 mg/dL (0.15-1.2) 12/29/22 09:08 AST 22 U/L (0-32) 12/29/22 09:08 ALT 43 U/L (0-33) H 12/29/22 09:08 Alkaline Phosphatase 77 U/L (35-105) 12/29/22 09:08 Total Protein 7.0 g/dL (6.6-8.7) 12/29/22 09:08 Albumin 4.2 g/dL (3.5-5.2) 12/29/22 09:08 Globulin 2.8 g/dL (1.3-4.6) 12/29/22 09:08 Coronavirus 229E (PCR) Not detected (NOT DETECT) 12/29/22 09:30 Human Metapneumovir PCR Not detected (NOT DETECT) 12/29/22 11:35 Influenza Type A Ag negative (Negative) 12/29/22 09:30 Influenza Type B Ag negative (Negative) 12/29/22 09:30 Entero/Rhino (PCR) Detected (NOT DETECT) A 12/29/22 11:35 SARS-CoV-2 (PCR) Not detected (NOT DETECT) 12/29/22 09:30 All radiology interpretation(s) finalized by discharge Discharge Plan Discharge Patient Disposition: Home Clinical Impression: Viral URI with cough, Suspected 2019-nCoV infection Condition: Stable Prescriptions: No Action (DME) night splint See Rx Instructions .Route .MEDSUPPLY Qty: 1 0RF Rx Instructions: As directed (DME) Sole Supports See Rx Instructions .Route .MEDSUPPLY Qty: 1 0RF Rx Instructions: As directed Vitamin C 500 mg Tablet 500 mg PO DAILY Excedrin Migraine 250-250-65 mg Tablet 1 tab PO Q6H PRN (Reason: Migraine Headache) Discharge Orders: Discharge ED (Routine); Ordered 12/29/22 Ordered By: Jose L Swan Referrals: Charlene Peraza FNP [Primary Care Provider] - Discharge Diet: Usual diet Discharge Activity: Increase activity as tolerated Patient Instructions: Upper Respiratory Infection (ED), Opioid Safety, Pain Management Activity Restrictions/Additional Instructions: Thank you for choosing [facility] for your healthcare needs today. Please realize this is an emergency room and that we are providing you with a medical screening exam and this may not be complete and all inclusive of all the testing and or work up that you may need to determine your ailment or severity of your illness. It is very important that you follow up as instructed or that you return to the Emergency Department should you have concerns or if your condition changes or worsens in any way. Suspected viral respiratory infection it may be COVID your symptoms are suggestive of this COVID testing is pending we will contact you With result. Coding Level of Care Code ED Job Superintendent for Halley Brooks
[2022-12-29 10:06] LABS: Influenza A by IFA negative (Negative); Influenza B by IFA negative (Negative)
[2022-12-29 10:47] VITALS: BP 127/89; PULSE 93; RESP 18; O2SAT 94
[2022-12-29 11:32] LABS: Adenovirus Not Detected (NOT DETECT); Chlamydia Pneumoniae Not Detected (NOT DETECT); Coronavirus 229E,HKU1,NL63,OC4 Not Detected (NOT DETECT); Human Metapneumovirus Not Detected (NOT DETECT); Human Rhinovirus/Enterovirus Detected (NOT DETECT); Influenza A Not Detected (NOT DETECT); Influenza A H1 Not Detected (NOT DETECT); Influenza A H1-2009 Not Detected (NOT DETECT); Influenza A H3 Not Detected (NOT DETECT); Influenza B Not Detected (NOT DETECT); Mycoplasma Pneumoniae Not Detected (NOT DETECT); Parainfluenza Virus Type 1 Not Detected (NOT DETECT); Parainfluenza Virus Type 2 Not Detected (NOT DETECT); Parainfluenza Virus Type 3 Not Detected (NOT DETECT); Parainfluenza Virus Type 4 Not Detected (NOT DETECT); Respiratory Syncytial Virus A Not Detected (NOT DETECT); Respiratory Syncytial Virus B Not Detected (NOT DETECT); SARS-COV-2 Not Detected (NOT DETECT)
[2022-12-29 11:35] LABS: Human Metapneumovirus Not Detected (NOT DETECT); Human Rhinovirus/Enterovirus Detected (NOT DETECT); Results from Genmark
== END 2022-12-29 11:26 | disposition home or self-care (01) ==
PROVIDERS: Emergency Provider Family Medicine; PCP Nurse Practitioner Family
DX: J06.9 Acute upper respiratory infection, unspecified (principal); R05.9 Cough, unspecified; Z11.52 Encounter for screening for COVID-19; Z95.0 Presence of cardiac pacemaker; M32.9 Systemic lupus erythematosus, unspecified
CPT/HCPCS: 36415; 71045; 80053; 85025; 87635; 87801; 87804; 93005; 99285

== ENCOUNTER 2023-08-30 19:01 | Emergency (ER) | payer MEDICARE, MEDICAID, SELFPAY ==
[2023-08-30 19:15] VITALS: BP 156/94; PULSE 100; RESP 15; TEMP 36.8; O2SAT 99
--- NOTE | 2023-08-30 19:29 | XRR_ITS ---
PROCEDURE INFORMATION: Exam: XR Left Shoulder Exam date and time: 08/30/2023 7:48 PM Age: 37 years old Clinical indication: Injury or trauma; Fall; Blunt trauma (contusions or hematomas); Shoulder; Left; Prior surgery; Surgery date: 6+ months; Surgery type: Pacer; Additional info: Fall/pain TECHNIQUE: Imaging protocol: Radiologic exam of the left shoulder. Views: 2 or more views. COMPARISON: CR XR chest 1V portable [id number] 12/29/2022 8:53 AM FINDINGS: Tubes, catheters and devices: Left pacemaker. Bones/joints: Normal. Soft tissues: Normal. XR/XR shoulder LT min 2V* [id number] IMPRESSION: No acute findings.
[2023-08-30] MEDS: dexamethasone 10 mg/mL INJ IM (19:38)
[2023-08-30] MEDS: ketorolac 60 mg/2 mL INJ IM (19:41)
[2023-08-30] MEDS: orphenadrine 30 mg/mL Inj 2 mL 60 MG IM (19:42)
[2023-08-30 19:46] VITALS: PULSE 85; RESP 17; O2SAT 98
--- NOTE | 2023-08-30 20:02 | ED_ITS ---
HPI - Extremity Problem General: Chief complaint: Extremity Injury, Upper Stated complaint: Fall Time Seen by Provider: 08/30/23 19:07 Source: patient Mode of arrival: ambulatory Limitations: no limitations History of Present Illness: Patient is a 37-year-old female who presents to the emergency department complaining of left shoulder pain status post fall last night. Patient states she tripped over one of her dogs and landed on her left side. She does note a history of dislocations that left shoulder in the past, states that he does not feel that bad however she was just concerned. She notes pain with range of motion, specifically overhead lifting. She also notes that the pain seems to radiate distally down to her fingers, also causing some numbness. She has no other symptoms to report at this time. She has not taken anything for pain. She did not hit her head, lose consciousness, or have any prolonged downtime with the fall. MD Complaint: extremity pain and joint pain (Shoulder) Onset (ago): day(s) Pain Consistency: constant Location: left Radiation: distal Exacerbating factors: range of motion Associated symptoms: Deny chest pain, fever(s) or rash Review of Systems General: Reports: 10 or more systems reviewed and unremarkable except in HPI and below Const: Reports: other (Fall); Denies: fever(s) or chills Card: Denies: chest pain Resp: Denies: dyspnea or productive cough GI: Denies: abdominal pain, nausea, vomiting or diarrhea : Denies: flank pain Musc: Reports: extremity pain (Left arm) and joint pain (Left shoulder); Denies: neck pain, back pain, extremity swelling, joint swelling, joint redness, joint warmth, limited range of motion or muscle weakness Skin/Breast: Denies: rash Neuro: Reports: numbness in extremities; Denies: headache(s) or weakness in extremities PFS ED PFSH: Medical History Lupus Surgical History History of permanent cardiac pacemaker placement Physical Exam Const: COMMON NORMALS: no acute distress, patient oriented x3, no limitations, healthy appearing, alert and well nourished NUTRITIONAL APPEARANCE: obese HENMT: COMMON NORMALS: normocephalic and atraumatic HEAD & SCALP: normocephalic and atraumatic Neck/C-Spine: COMMON NORMALS: full ROM, supple and no meningeal signs Chest: OTHER: Presence of implantable pacemaker Resp: COMMON NORMALS: normal respiratory effort, No use of accessory muscles and clear to auscultation bilaterally AUSCULTATION: clear to auscultation bilaterally Cardio: COMMON NORMALS: regular rate and regular rhythm RATE: regular rate RHYTHM: regular rhythm Extremity: COMMON NORMALS: normal to inspection, capillary refill normal, no joint enlargement and no clubbing, cyanosis or edema NARRATIVE EXTREMITY EXAM: Range of motion somewhat limited with overhead lifting of the left arm. No obvious deformity or bruising. No signs of trauma. No significant reproducible tenderness to palpation. Distal neurovascular status intact. Neuro: COMMON NORMALS: patient oriented x3, moves all extremities, no focal motor deficits and no sensory deficits noted SENSORIUM/ORIENTATION: Yes alert MENINGEAL SIGNS: Yes no meningeal signs Skin: COMMON NORMALS: no rashes or lesions noted GENERAL SKIN EXAM: no rashes or lesions noted Course Vital Signs: Vital signs: Vital Signs Temperature 98.3 F 08/30/23 19:15 Pulse Rate 80 08/30/23 21:08 Respiratory Rate 17 08/30/23 19:46 Blood Pressure 156/94 08/30/23 19:15 Pulse Oximetry 97 08/30/23 21:08 Oxygen Delivery Me thod Room Air 08/30/23 19:46 MDM - Extremity (Nontraumatic) Medical Decision Making Patient presented with left shoulder pain after being involved in a fall last night. She is very anxious on examination, does note some limited range of motion with overhead lifting. No significant reproducible tenderness to palpation. Her x-ray did not demonstrate any acute abnormalities, despite her noting history of dislocation of that shoulder. Her vitals were normal. Rest of her examination was normal. She does note improvement after receiving shots of Toradol, steroid, and Norflex. She is instructed to follow-up after establishing with primary care, of which she will call tomorrow. Return precautions were given otherwise. Do believe she is dealing with a contusion related to the fall. Lab Data Radiology Impressions Shoulder X-Ray 08/30/23 19:29 IMPRESSION: No acute findings. All radiology interpretation(s) finalized by discharge Discharge Plan Discharge Patient Disposition: Home Clinical Impression: Contusion of left shoulder Condition: Stable Prescriptions: New prednisone 20 mg tablet 60 mg PO ONCE 5 Days Qty: 15 0RF methocarbamol 750 mg tablet 750 mg PO Q8H 5 Days Qty: 15 0RF naproxen 500 mg tablet 500 mg PO BID PRN (Reason: pain) Qty: 30 0RF No Action (DME) night splint See Rx Instructions .Route .MEDSUPPLY Qty: 1 0RF Rx Instructions: As directed (DME) Sole Supports See Rx Instructions .Route .MEDSUPPLY Qty: 1 0RF Rx Instructions: As directed Vitamin C 500 mg Tablet 500 mg PO DAILY Excedrin Migraine 250-250-65 mg Tablet 1 tab PO Q6H PRN (Reason: Migraine Headache) Discharge Orders: Discharge ED (Routine); Ordered 08/30/23 Ordered By: Estevan Young Discharge Diet: Usual diet Discharge Activity: Increase activity as tolerated Patient Instructions: Shoulder Pain (ED) Activity Restrictions/Additional Instructions: Take medications as prescribed. Call [facility] tomorrow to schedule appointment with primary care as discussed. Gentle range of motion exercises as tolerated. Ice as needed. Return with any new or worsening. 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
[2023-08-30 21:08] VITALS: PULSE 80; O2SAT 97
== END 2023-08-30 21:11 | disposition home or self-care (01) ==
PROVIDERS: Emergency Provider Physician Assistant
DX: S40.012A Contusion of left shoulder, initial encounter (principal); Z95.0 Presence of cardiac pacemaker; M32.9 Systemic lupus erythematosus, unspecified; W01.0XXA Fall on same level from slipping, tripping and stumbling without subsequent striking against object, initial encounter
CPT/HCPCS: 73030; 96372; 99284; J1100; J1885; J2360

== ENCOUNTER → 2023-08-31 15:14 | Outpatient (BNVA) | payer MEDICARE, MEDICAID, SELFPAY | DX: Z13.220 Encounter for screening for lipoid disorders (principal); Z13.6 Encounter for screening for cardiovascular disorders; M32.9 Systemic lupus erythematosus, unspecified; R53.83 Other fatigue; Z87.42 Personal history of other diseases of the female genital tract; Z95.0 Presence of cardiac pacemaker | CPT/HCPCS: 80053; 80061; 82607; 84443; 84481; 85025 ==

== ENCOUNTER 2023-09-20 14:35 | Outpatient (CLI) | payer MEDICARE, MEDICAID, SELFPAY ==
--- NOTE | 2023-09-20 15:00 | MM_ITS ---
WS: [id number] BILATERAL 3D TOMOSYNTHESIS DIGITAL SCREENING MAMMOGRAPHY WITH CAD CLINICAL INFORMATION: screening HISTORY: Screening mammogram. No current complaints. COMPARISON: 2022 TECHNIQUE: Bilateral CC and MLO views. FINDINGS: Scattered fibroglandular densities bilaterally. No suspicious focal mass, asymmetry, calcifications, or architectural distortion. No evidence of malignancy. Cardiac pacer and loop recorder. [facility] red calcification LEFT breast MM/[place] [id number] IMPRESSION: BI-RADS: 2-Benign FOLLOW UP: 1 Year Follow-up Recommend return to annual screening mammography.
== END 2023-09-20 14:36 | disposition home or self-care (01) ==
DX: Z12.31 Encounter for screening mammogram for malignant neoplasm of breast (principal); R92.323 Mammographic fibroglandular density, bilateral breasts
CPT/HCPCS: 77063; 77067

== ENCOUNTER 2023-09-22 10:28 | Outpatient (CLI) | payer MEDICARE, MEDICAID, SELFPAY ==
--- NOTE | 2023-09-22 12:00 | CT_ITS ---
WS: [id number] CT HEAD NONCONTRAST HISTORY: brain fog and holes in brain TECHNIQUE: Contiguous axial imaging performed through the brain in 2.5 mm imaging. Bone and soft tiss ue windows. Sagittal and coronal reformats reviewed. All CT scans at [facility] use at least one of these dose optimization techniques: automated exposure control; mA and/or kV adjustment per pa tient size (includes targeted exams where dose is matched to clinical indication); or iterative recon struction. DLP: 1039.15 mGy.cm COMPARISON: None available. No acute intracranial hemorrhage, midline shift or mass effect. No atrophy or prior infarcts or herniation. Ventricles: Normal size with no hydrocephalus. Paranasal sinuses: As visualized are clear. Mastoid air cells: Well pneumatized. Calvarium and scalp: Skull is intact with no soft tissue edema or swelling. CT/CT head wo con* [id number] IMPRESSION: Negative head CT.
== END 2023-09-22 10:29 | disposition home or self-care (01) ==
DX: R29.6 Repeated falls (principal); R41.89 Other symptoms and signs involving cognitive functions and awareness
CPT/HCPCS: 70450

== ENCOUNTER 2023-12-08 13:56 | Emergency (ER) | payer MEDICARE, MEDICAID, SELFPAY ==
--- NOTE | 2023-12-08 13:57 | XR_ITS ---
WS: [id number] Portable AP upright chest, 12/08/2023 Clinical Data: cp Comparison: None. Findings: No nodules, masses or effusions are seen. The heart is normal. The pulmonary vascularity is not increased. No pneumonia or pneumothorax is seen. There is a permanent pacemaker with the generat or overlying the left lateral chest and the wires ending in the cardiac chambers. There is accounting device overlying the left chest. Monitor leads are on the chest wall. XR/XR chest 1V portable [id number] Impression: Cardiac pacemaker.
--- NOTE | 2023-12-08 13:58 | ECG_ITS ---
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
[2023-12-08 14:03] VITALS: BP 131/88; PULSE 115; RESP 22; TEMP 37; O2SAT 97; BMI 38.9
--- NOTE | 2023-12-08 14:35 | CTR_ITS ---
PROCEDURE INFORMATION: Exam: CT Head Without Contrast Exam date and time: 12/08/2023 3:27 PM Age: 38 years old Clinical indication: Pain; Headache; Additional info: CESAR TECHNIQUE: Imaging protocol: Computed tomography of the head without contrast. Radiation optimization: All CT scans at this facility use at least one of these dose optimization techniques: automated exposure control; mA and/or kV adjustment per patient size (includes targeted exams where dose is matched to clinical indication); or iterative reconstruction. COMPARISON: CT head wo con* [id number] 09/22/2023 11:09 AM RADIATION DOSE METRICS: Total DLP (mGy-cm): 1079 FINDINGS: Brain: Normal. No hemorrhage. Unremarkable white matter. No mass effect. Cerebral ventricles: No ventriculomegaly. Paranasal sinuses: Visualized sinuses are unremarkable. No fluid levels. Mastoid air cells: Visualized mastoid air cells are well aerated. Bones: Unremarkable. No acute fracture. Soft tissues: Unremarkable. CT/CT head wo con* [id number] IMPRESSION: No acute intracranial abnormality.
--- NOTE | 2023-12-08 14:37 | ED_ITS ---
HPI - Chest Pain 2 General: Chief Complaint: Chest Pain Stated Complaint: Chest pain Time Seen by Provider: 12/08/23 14:32 Source: patient Mode of arrival: ambulatory Limitations: no limitations History of Present Illness: 38-year-old female who states that over the last few months she is having chest pain she has been having intermittent syncopal episodes and headaches. States she had a fall a month ago where she hit her chest and thinks she may have missed her pacemaker up she had a history of pacemaker placement in [place]. Patient states that today she is just felt weak and felt like she is going to pass out. She had a headache as well she denies any fever denies any vomiting denies any diarrhea. Associated symptoms: Reports syncope; Deny abdominal pain, dyspnea, fever(s), nausea or vomiting Related Data Home Medications Medication Instructions Recorded Confirmed ascorbic acid (vitamin C) 500 mg 500 mg PO DAILY 12/29/22 08/31/23 tablet (Vitamin C) [id number] 250 1 tab PO Q6H PRN Migraine Headache 12/29/22 08/31/23 mg-250 mg-65 mg tablet (Excedrin Migraine) Previous Rx's Medication Instructions Recorded night splint #1 ea 04/12/22 Sole Supports #1 ea 05/24/22 naproxen 500 mg tablet 500 mg PO BID PRN pain #30 tabs 08/30/23 arm brace (Wrist Brace) #1 ea 08/31/23 blood pressure monitor #1 ea 08/31/23 venlafaxine 37.5 mg 37.5 mg PO DAILY #30 caps 08/31/23 capsule,extended release 24 hr (Effexor XR) Allergies Allergy/AdvReac Type Severity Reaction Status Date / Time Latex, Natural Rubber Allergy Intermediate ALGY-Bliste Verified 12/08/23 14:03 r gluten Allergy ALGY-Swell Verified 12/08/23 14:03 Lip/Tongue/Throat spironolactone Allergy lethargy Verified 12/08/23 14:03 Artifical sweetner Allergy ADR-Swelling Uncoded 12/08/23 14:03 of the Eye Review of Systems 2 Const: Reports: fatigue; Denies: fever(s), chills, body aches or change in appetite Eyes: Denies: blurry vision or eye discomfort ENMT: Denies: throat pain or dental pain Card: Reports: chest pain and syncope Resp: Denies: dyspnea GI: Denies: abdominal pain, nausea, vomiting or diarrhea Musc: Denies: neck pain or back pain Skin/Breast: Denies: rash Neuro: Reports: headache(s) PFSH ED 2 PFSH: Medical History PTSD (post-traumatic stress disorder) Anxiety and depression Frequent falls Brain fog Carpal tunnel syndrome Elevated blood pressure reading in office without diagnosis of hypertension Fatigue Screening for breast cancer Screening for cardiovascular condition Lupus CMS/HCC Surgical History History of loop recorder 2018 History of permanent cardiac pacemaker placement Placed 2020. Single-chamber [employer] Family History Grandfather Stroke Father Stroke Hypertension Diabetes Cancer Prostate, Stomach, Lung, Skin, colon/ intestinal Bleeding disorder DVT with left leg amputation due to blood loss Social History Smoking and tobacco/nicotine status: current every day tobacco/nicotine user cigarettes Second hand smoke exposure: No Alcohol intake: current Alcohol intake frequency: holidays/special occasions only Alcohol type: wine Substance/Drug Use: never Household members: children Marital status: Legally Physical Exam 2 Const: COMMON NORMALS: no acute distress, patient oriented x3 and healthy appearing HENMT: COMMON NORMALS: normocephalic and atraumatic HEAD & SCALP: n ormocephalic and atraumatic Eye: COMMON NORMALS: conjunctivae normal CONJUNCTIVA: Yes conjunctivae normal Neck/C-Spine: COMMON NORMALS: full ROM and supple Chest: COMMONS NORMALS: normal inspection of the chest and normal palpation of entire chest wall Resp: COMMON NORMALS: normal respiratory effort, No retractions, No use of accessory muscles and clear to auscultation bilaterally AUSCULTATION: clear to auscultation bilaterally Cardio: COMMON NORMALS: regular rate, regular rhythm and No murmurs present (Cardio) RATE: regular rate RHYTHM: regular rhythm GI: COMMON NORMALS: Normal to inspection, nondistended, normoactive bowel sounds present, Soft to palpation, non-tender and no masses PALPATION: Yes Soft to palpation Extremity: COMMON NORMALS: normal to inspection and full ROM Neuro: COMMON NORMALS: patient oriented x3, moves all extremities and no focal motor deficits Psych: COMMON NORMALS: mental status grossly normal, Normal thought process present and cooperative THOUGHT PROCESS: Normal thought process present Skin: COMMON NORMALS: no rashes or lesions noted and no wounds GENERAL SKIN EXAM: no rashes or lesions noted Course 2 Vital Signs: Vital signs: Vital Signs Temperature 98.6 F 12/08/23 14:03 Pulse Rate 62 12/08/23 18:14 Respiratory Rate 16 12/08/23 18:14 Blood Pressure 143/96 12/08/23 18:14 Pulse Oximetry 99 12/08/23 18:14 Oxygen Delivery Me thod Room Air 12/08/23 17:30 MDM - Chest Pain Medical Decision Making Patient presents with chest pain she is also had a headache and passing out spells it has been going on for months since a fall roughly in August she is very concerned that her pacemaker is not working I did interrogate her pacemaker troponins D-dimer head CT here are all normal. She has no signs of acute coronary syndrome no signs of pulm embolism we will get her follow-up with cardiology patient was very upset while here thinking that her pacemaker was not working I did try to explain at length there was not anything that we found that was life-threatening at this time and we will get her follow-up she is return if worsening as well. Medical Records I reviewed the patient's medical records. Lab Data I reviewed the patient's lab results. 12/08/23 14:15 12/08/23 14:15 Radiology Impressions Chest X-Ray 12/08/23 13:57 Impression: Cardiac pacemaker. Head CT 12/08/23 14:35 IMPRESSION: No acute intracranial abnormality. Laboratory Results WBC 15.38 10^3/uL (3.29-11.43) H 12/08/23 14:15 RBC 5.12 10^6/uL (3.85-5.65) 12/08/23 14:15 Hgb 14.50 g/dL (11.27-16.99) 12/08/23 14:15 Hct 45.8 % (36-47) 12/08/23 14:15 MCV 89.5 fl (85-98) 12/08/23 14:15 MCH 28.3 pg (27-33) 12/08/23 14:15 MCHC 31.7 g/dL (30-55) 12/08/23 14:15 RDW 13.2 % (12.1-15.1) 12/08/23 14:15 Plt Count 286 10^3/cmm (157-399) 12/08/23 14:15 MPV 11.9 fL (7.4-10.4) H 12/08/23 14:15 Neut % (Auto) 86.1 % 12/08/23 14:15 Lymph % (Auto) 11.1 % 12/08/23 14:15 Park % (Auto) 1.7 % 12/08/23 14:15 Eos % (Auto) 0.1 % 12/08/23 14:15 Baso % (Auto) 0.3 % 12/08/23 14:15 Neut # (Auto) 13.26 10^3/uL (1.8-7.7) H 12/08/23 14:15 Lymph # (Auto) 1.7 10^3/uL (0.8-4.8) 12/08/23 14:15 Park # (Auto) 0.3 10^3/uL (0.2-0.9) 12/08/23 14:15 Eos # (Auto) 0.0 10^3/uL (0.0-0.8) 12/08/23 14:15 Baso # (Auto) 0.1 10^3/uL (0.0-0.1) 12/08/23 14:15 Nucleated RBC % (auto) 0 % 12/08/23 14:15 Nucleated RBCs # 0.0 /100WBC 12/08/23 14:15 D-Dimer 0.52 ug/mLFEU (0-0.59) 12/08/23 14:15 Sodium 136 mmol/L (136-145) 12/08/23 14:15 Potassium 4.7 mmol/L (3.5-5.1) 12/08/23 14:15 Chloride 103 mmol/L (98-107) 12/08/23 14:15 Carbon Dioxide 21 mmol/L (22-29) L 12/08/23 14:15 Anion Gap 16.7 (5-19) 12/08/23 14:15 BUN 16 mg/dL (6-20) 12/08/23 14:15 Creatinine 0.9 mg/dL (0.5-0.9) 12/08/23 14:15 GFR Calculation 69.7 mL/min (90-130) L 12/08/23 14:15 Glucose 197 mg/dL (65-115) H 12/08/23 14:15 Calculated Osmolality 289 mOsm/kg (285-295) 12/08/23 14:15 Calcium 9.3 mg/dL (8.5-10.5) 12/08/23 14:15 Total Bilirubin 0.2 mg/dL (0.15-1.2) 12/08/23 14:15 AST 42 U/L (0-32) H 12/08/23 14:15 ALT 56 U/L (0-33) H 12/08/23 14:15 Alkaline Phosphatase 82 U/L (35-105) 12/08/23 14:15 Troponin T Baseline < 6 ng/L (0-10) 12/08/23 14:15 Troponin T 120 Minute 6.00 ng/L (0-10) 12/08/23 16:29 Delta Troponin T 0.22016 ABS# (0-10) 12/08/23 16:29 Total Protein 6.9 g/dL (6.6-8.7) 12/08/23 14:15 Albumin 4.5 g/dL (3.5-5.2) 12/08/23 14:15 Globulin 2.4 g/dL (1.3-4.6) 12/08/23 14:15 Lipase 26 U/L (13-60) 12/08/23 14:15 TSH 1.63 uIU/mL (0.27-4.20) 12/08/23 14:15 HCG, Qual Negative (Negative) 12/08/23 14:15 Urine Color Yellow (Yellow) 12/08/23 15:34 Urine Appearance Clear (CLEAR) 12/08/23 15:34 Urine pH 8.0 (5-7) A 12/08/23 15:34 Ur Specific [place] 1.018 (1.005-1.030) 12/08/23 15:34 Urine Protein Negative (Negative) 12/08/23 15:34 Urine Glucose (UA) Negative (Normal) 12/08/23 15:34 Urine Ketones Negative (Negative) 12/08/23 15:34 Urine Blood Negative (Negative) 12/08/23 15:34 Urine Nitrate Negative (Negative) 12/08/23 15:34 Urine Bilirubin Negative (Negative) 12/08/23 15:34 Urine Urobilinogen 1.0 mg/dL (Negative) 12/08/23 15:34 Ur Leukocyte Esterase Negative (Negative) 12/08/23 15:34 Urine RBC 0-2 /hpf (0-2) 12/08/23 15:34 Urine WBC 0-5 /hpf (0-5) 12/08/23 15:34 Ur Squamous Epith Cells 0-5 /hpf (0-5) 12/08/23 15:34 Amorphous Sediment Not Reportable 12/08/23 15:34 Urine Bacteria None seen /hpf (NONE) 12/08/23 15:34 Hyaline Casts 0-4 /lpf H 12/08/23 15:34 All radiology interpretation(s) finalized by discharge EKG Data EKG 1: I personally reviewed and interpreted this EKG as follows: EKG interpretation date: 12/08/23 EKG interpretation time: 14:00 Interpretation: sinus tach hr [address] or t wave abnormalities qrs 83 qtc 410 EKG 2: I personally reviewed and interpreted this EKG as follows: EKG interpretation date: 12/08/23 EKG interpretation time: 15:48 Interpretation: paced hr [address] or t wave abnormalities qrs 86 qtc 406 Discharge Plan Discharge Patient Disposition: Home Clinical Impression: Chest pain, Near syncope Condition: Stable Prescriptions: No Action (DME) night splint See Rx Instructions .Route .MEDSUPPLY Qty: 1 0RF Rx Instructions: As directed (DME) Sole Supports See Rx Instructions .Route .MEDSUPPLY Qty: 1 0RF Rx Instructions: As directed (DME) blood pressure monitor Kit See Rx Instructions .Route Qty: 1 0RF Rx Instructions: As directed (DME) Wrist Brace Misc See Rx Instructions .Route Qty: 1 0RF Rx Instructions: As directed venlafaxine [Effexor XR] 37.5 mg capsule,extended release 24hr 37.5 mg PO DAILY Qty: 30 0RF Vitamin C 500 mg Tablet 500 mg PO DAILY Excedrin Migraine 250-250-65 mg Tablet 1 tab PO Q6H PRN (Reason: Migraine Headache) naproxen 500 mg tablet 500 mg PO BID PRN (Reason: pain) Qty: 30 0RF Discharge Orders: Discharge ED (Routine); Ordered 12/08/23 Ordered By: Rula Sarmiento Referrals: Lara Gooden, GURPREET [Primary Care Provider] - Castro Mejia M.D [Physician] - 4-7 days Discharge Diet: Advance as tolerated Discharge Activity: Resume usual activity Patient Instructions: Chest Pain (ED), Near Syncope (ED) Coding Level of Care Code 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
[2023-12-08 14:41] LABS: Basophils # 0.1 10^3/uL (0.0-0.1); Basophils % 0.3 %; Eosinophils % 0.1 %; Hematocrit 45.8 % (36-47); Lymphocytes # 1.7 10^3/uL (0.8-4.8); Lymphocytes % 11.1 %; Mean Corpuscular HGB Conc 31.7 g/dL (30-55); Mean Corpuscular Hemoglobin 28.3 pg (27-33); Mean Corpuscular Volume 89.5 fl (85-98); Mean Platelet Volume 11.9 fL (7.4-10.4); Monocytes # 0.3 10^3/uL (0.2-0.9); Monocytes % 1.7 %; Neutrophils # 13.26 10^3/uL (1.8-7.7); Neutrophils % 86.1 %; Nucleated Red Blood Cells % 0 %; Platelet Count 286 10^3/cmm (157-399); Red Blood Count 5.12 10^6/uL (3.85-5.65); Red Cell Distribution Width 13.2 % (12.1-15.1); White Blood Count 15.38 10^3/uL (3.29-11.43)
[2023-12-08 14:56] LABS: Troponin(5th) Baseline < 6 ng/L (0-10)
[2023-12-08] MEDS: LORazepam 2 mg/mL INJ 1 mL 1 MG IVP (14:58)
[2023-12-08 15:02] VITALS: BP 123/70; RESP 18; O2SAT 98
[2023-12-08 15:08] LABS: Alanine Aminotransferase 56 U/L (0-33); Albumin Level 4.5 g/dL (3.5-5.2); Alkaline Phosphatase 82 U/L (35-105); Anion Gap 16.7 (5-19); Aspartate Amino Transferase 42 U/L (0-32); Blood Urea Nitrogen 16 mg/dL (6-20); Calcium 9.3 mg/dL (8.5-10.5); Carbon Dioxide 21 mmol/L (22-29); Chloride 103 mmol/L (98-107); Creatinine Clr Calc Pharmacy 94.5357; Globulin 2.4 g/dL (1.3-4.6); Glomerular Filtration Rate 69.7 mL/min (90-130); Glucose 197 mg/dL (65-115); Lipase 26 U/L (13-60); Osmolality Calculated 289 mOsm/kg (285-295); Potassium 4.7 mmol/L (3.5-5.1); Sodium 136 mmol/L (136-145); Total Bilirubin 0.2 mg/dL (0.15-1.2); Total Protein 6.9 g/dL (6.6-8.7)
[2023-12-08 15:19] LABS: Thyroid Stimulating Hormone 1.63 uIU/mL (0.27-4.20)
[2023-12-08 15:30] VITALS: BP 125/72; PULSE 57; RESP 18; O2SAT 98
[2023-12-08 15:33] LABS: HCG, Serum Qual Negative (Negative)
--- NOTE | 2023-12-08 15:48 | ECG_ITS ---
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: : 1985 Requested By: Rula Sarmiento Order Number: [id number] Reading MD: CHIQUITA WORKMAN Measurements Intervals [place] Rate: 79 P: -4 MS: 139 QRS: 15 QRSD: 86 T: 29 QT: 372 QTc: 427 Interpretive Statements ELECTRONIC ATRIAL PACEMAKER LOW QRS VOLTAGE IN PRECORDIAL LEADS [QRS DEFLECTION < 1.0 mV IN CHEST LEADS] ABNORMAL RHYTHM ECG Compared to ECG 12/08/2023 14:00:08 Low QRS voltage now present Sinus tachycardia no longer present Electronically Signed On 12-10-2023 18:20:54 CDT by CHIQUITA WORKMAN [email or web address]
[2023-12-08 15:56] LABS: D Dimer 0.52 ug/mLFEU (0-0.59)
[2023-12-08 16:00] VITALS: BP 141/80; PULSE 55; RESP 16; O2SAT 99
[2023-12-08 16:06] LABS: Bilirubin Urine Negative (Negative); Blood Urine Negative (Negative); Glucose Urine UA Negative (Normal); Ketones Urine Negative (Negative); Leukocyte Esterase Urine Negative (Negative); Nitrate Urine Negative (Negative); Protein Urine Negative (Negative); Specific Gravity, Urine 1.018 (1.005-1.030); Urine Appearance Clear (CLEAR); Urine Color Yellow (Yellow)
[2023-12-08 16:10] LABS: Add Urine Microscopic? YES; Bacteria Urine None Seen /hpf; Hyaline Casts Urine 0-4 /lpf; RBC Urine 0-2 /hpf (0-2); Squamous Epithelial Cell Urine 0-5 /hpf (0-5); WBC Urine 0-5 /hpf (0-5)
[2023-12-08 16:56] LABS: Troponin 5 2HR Delta 0.00001 ABS# (0-10)
[2023-12-08 17:30] VITALS: BP 114/69; PULSE 62; RESP 18; O2SAT 96
[2023-12-08 18:14] VITALS: BP 143/96; PULSE 62; RESP 16; O2SAT 99
== END 2023-12-08 18:25 | disposition home or self-care (01) ==
PROVIDERS: Emergency Provider Emergency Medicine
DX: R07.9 Chest pain, unspecified (principal); R55 Syncope and collapse; R00.0 Tachycardia, unspecified; Z72.0 Tobacco use; M32.9 Systemic lupus erythematosus, unspecified; Z95.0 Presence of cardiac pacemaker
CPT/HCPCS: 36415; 70450; 71045; 80053; 81001; 83690; 84443; 84484; 84703; 85025; 85378; 93005; 96374; 99285; J2060

== ENCOUNTER → 2024-01-26 15:31 | Outpatient (BNVA) | payer MEDICARE, MEDICAID, SELFPAY | PROVIDERS: Visit Provider Internal Medicine Cardiovascular Disease | DX: R07.9 Chest pain, unspecified (principal) | CPT/HCPCS: 93005 ==

== ENCOUNTER → 2024-02-01 08:57 | Outpatient (BNVA) | payer MEDICARE, MEDICAID, SELFPAY | PROVIDERS: Visit Provider Internal Medicine | DX: Z45.010 Encounter for checking and testing of cardiac pacemaker pulse generator [battery] (principal) | CPT/HCPCS: 93296 ==

== ENCOUNTER 2024-05-29 10:24 | Emergency (ER) | payer MEDICARE, MEDICAID, SELFPAY ==
[2024-05-29 10:27] VITALS: BP 156/87; PULSE 91; TEMP 36.5; O2SAT 100; BMI 35.4
--- NOTE | 2024-05-29 10:45 | XRR_ITS ---
PROCEDURE INFORMATION: Exam: XR Chest Exam date and time: 05/29/2024 10:49 AM Age: 38 years old Clinical indication: Cough and dyspnea; Additional info: Dyspnea/cough TECHNIQUE: Imaging protocol: Radiologic exam of the chest. Views: 1 view. COMPARISON: CR XR chest 1V portable [id number] 12/08/2023 2:47 PM FINDINGS: Tubes, catheters and devices: Left chest wall device with intact leads. Lead less pacemaker. Lungs: Hypoinflation with bronchovascular crowding. No focal consolidation. Pleural spaces: Unremarkable. No pleural effusion. No pneumothorax. Heart/Mediastinum: Mild prominent cardiac silhouette. Bones/joints: Unremarkable. XR/XR chest 1V portable [id number] IMPRESSION: No acute cardiopulmonary finding.
--- NOTE | 2024-05-29 10:50 | ED_ITS ---
HPI - General Adult 2 General: Chief complaint: General Medical Stated complaint: dr barrientos, after effects of a cardiac episode Time Seen by Provider: 05/29/24 10:43 History of Present Illness: 38-year-old female presents emergency ro om stating she has had another fall one of her things . Patient states she feels like her blood is boiling and or skin is not hot. She reports feeling dizzy. She states it feels like she had a lupus flare that caused this to happen. Reviewed cardiology notes. In talking to the patient with nurse present she describes having what sounds like near syncopal episodes that occur spontaneously while she is at rest. She had extensive evaluation for these in the past there is a concern that she developed some bradycardia that was caught after extensive cardiac evaluation and monitoring and a pacemaker was placed. She states she still gets these episodes she had 1 last month and 1 today. She was post see cardiology today contacted the office and was advised to come to the emergency room. She had a near syncopal episode today she got very dizzy and lightheaded she gave a extensive description of being on a carnival ride as being the near she can describe the symptoms like. She states in the past she was on Florinef and midodrine. She reports that these seem to help but she was taken off of those at some point in the course of her care. There is also some concern of lupus causing some cardiac issues. Additionally she has PCOS. She has seen rheumatology in the past. She denies any recent medication changes. She has intermittent chronic abdominal pain irregular bowel pattern no significant recent alterations from what she perceives as her baseline normal. She is not having any chest pain at this time. Associated symptoms: Deny chest pain, dyspnea or rash Related Data Home Medications ?Medication ?Instructions ?Recorded ?Confirmed No Known Home Medications 05/29/24 0410/15 Allergies Allergy/AdvReac Type Severity Reaction Status Date / Time Latex, Natural Rubber Allergy Intermediate ALGY-Bliste Verified 05/29/24 10:38 r gluten Allergy ALGY-Swell Verified 05/29/24 10:38 Lip/Tongue/Throat spironolactone Allergy lethargy Verified 05/29/24 10:38 Artifical sweetner Allergy ADR-Swelling Uncoded 05/29/24 10:38 of the Eye Review of Systems 2 Const: Denies: fever(s) or chills Card: Denies: chest pain Resp: Denies: dyspnea GI: Denies: abdominal pain : Denies: dysuria, urinary frequency or urinary urgency Musc: Denies: neck pain or back pain Skin/Breast: Denies: rash Neuro: Reports: dizziness PFSH ED 2 PFSH: Medical History PTSD (post-traumatic stress disorder) Anxiety and depression Frequent falls Brain fog Carpal tunnel syndrome Elevated blood pressure reading in office without diagnosis of hypertension Fatigue Screening for breast cancer Screening for cardiovascular condition Lupus CMS/HCC Surgical History History of loop recorder 2018 History of permanent cardiac pacemaker placement Placed 2020. Single-chamber Biotronik Family History Grandfather Stroke Father Stroke Hypertension Diabetes Cancer Prostate, Stomach, Lung, Skin, colon/ intestinal Bleeding disorder DVT with left leg amputation due to blood loss Social History Smoking and tobacco/nicotine status: current every day tobacco/nicotine user cigarettes Second hand smoke exposure: No Alcohol intake: current Alcohol intake frequency: holidays/special occasions only Alcohol type: wine Substance/Drug Use: never Household members: children Marital status: Legally Physical Exam 2 Const: ORIENTATION/CONSCIOUSNESS: Yes awake, Yes oriented to person, Yes oriented to place and Yes oriented to time HENMT: COMMON NORMALS: normocephalic, atraumatic and hearing grossly normal bilaterally HEAD & SCALP: normocephalic and atraumatic Resp: COMMON NORMALS: normal respiratory effort, No retractions, No use of accessory muscles and clear to auscultation bilaterally AUSCULTATION: clear to auscultation bilaterally Cardio: COMMON NORMALS: regular rate, regular rhythm and No murmurs present (Cardio) RATE: regular rate RHYTHM: regular rhythm GI: COMMON NORMALS: Soft to palpation and No hepatosplenomegaly present A USCULTATION: Yes normoactive bowel sounds PALPATION: Yes Soft to palpation, No Tenderness to palpation present (GI), No Guarding due to palpation present (GI) and Yes No hepatosplenomegaly present Extremity: COMMON NORMALS: normal to inspection, capillary refill normal, no clubbing, cyanosis or edema, no calf tenderness and no pedal edema Neuro: SENSORIUM/ORIENTATION: Yes oriented to person, Yes oriented to place and Yes oriented to time Skin: COMMON NORMALS: no rashes or lesions noted GENERAL SKIN EXAM: no rashes or lesions noted Course 2 Vital Signs: Vital signs: Vital Signs Temperature 97.7 F 05/29/24 10:27 Pulse Rate 105 H 05/29/24 11:38 Blood Pressure 135/100 05/29/24 11:38 Pulse Oximetry 95 05/29/24 11:38 Oxygen Delivery Me thod Room Air 05/29/24 10:27 MDM - General Adult Medical Decision Making Cardiac enzymes were completed EKG shows normal sinus rhythm. Troponins are normal. We have not noted any significant bradycardias in the time that she has been here. We interpreted her pacemaker it shows the last noted event was around May 07, 2024. The remainder of her labs are unremarkable she has several borderline hypertensive blood pressures while she was here. Did review the notes in the chart there is a procedure note from Dr. Daley placing a pacemaker previously because of episodes of bradycardia and neurogenic syncope. Patient had been quite abrasive and aggressive with myself and with staff earlier. After an initial very brief encounter I brought a nurse into the room to witness our conversation. When he went back in the room took the patient's primary nurse with me. The patient quickly escalated the situation because she was angry demanding that she be prescribed specific medications. Discussed with her that I had reviewed the entire case with Dr. Iraheta prior to coming back to the room and he recommended against these medicines at this time. He did not feel that there were any other medications that should be prescribed at this time. He recommends follow-up in the cardiology clinic. Patient became angry was screaming and threatening. She is demanding that she be given Florinef and midodrine. At this time with her borderline elevated blood pressures do not believe these would be helpful and may even be harmful. She is convinced that her heart is going to stop because of her bradycardia. Has been no witnessed episodes of bradycardia and the pacemaker appears to be functioning well. She states that because she feels symptomatic that it must not be working correctly and that she is likely to pass out and . Told her there is no evidence that the pacemaker is working improperly and every evidence on the pacemaker interrogation that it is working properly. Also reviewed with her I discussed her case with Dr. Iraheta and he did not feel any other interventions were necessary at this time and recommended that she follow-up in the clinic with him. Patient continued to escalate situation ultimately 2 other nurses joined myself and the primary nurse in the room because of the patient's screaming and yelling. Security was also called. Patient continued to escalate attempting to myself and the staff. Advised the patient we will discharge her home and make arrangements for short-term follow-up with the cardiology clinic. Ultimately she left without her discharge instructions. We will still follow through with making arrangements for her follow-up if she wishes to complete it. Medical Records I reviewed the patient's medical records. Lab Data I reviewed the patient's lab results. 05/29/24 10:49 05/29/24 10:49 Radiology Impressions Chest X-Ray 05/29/24 10:45 IMPRESSION: No acute cardiopulmonary finding. Laboratory Results WBC 10.68 10^3/uL (3.29-11.43) 05/29/24 10:49 RBC 4.89 10^6/uL (3.85-5.65) 05/29/24 10:49 Hgb 14.00 g/dL (11.27-16.99) 05/29/24 10:49 Hct 44.1 % (36-47) 05/29/24 10:49 MCV 90.2 fl (85-98) 05/29/24 10:49 MCH 28.6 pg (27-33) 05/29/24 10:49 MCHC 31.7 g/dL (30-55) 05/29/24 10:49 RDW 13.3 % (12.1-15.1) 05/29/24 10:49 Plt Count 193 10^3/cmm (157-399) 05/29/24 10:49 MPV 12.5 fL (7.4-10.4) H 05/29/24 10:49 Neut % (Auto) 60.9 % 05/29/24 10:49 Lymph % (Auto) 28.7 % 05/29/24 10:49 [place] % (Auto) 6.9 % 05/29/24 10:49 Eos % (Auto) 2.4 % 05/29/24 10:49 Baso % (Auto) 0.7 % 05/29/24 10:49 Neut # (Auto) 6.49 10^3/uL (1.8-7.7) 05/29/24 10:49 Lymph # (Auto) 3.1 10^3/uL (0.8-4.8) 05/29/24 10:49 [place] # (Auto) 0.7 10^3/uL (0.2-0.9) 05/29/24 10:49 Eos # (Auto) 0.3 10^3/uL (0.0-0.8) 05/29/24 10:49 Baso # (Auto) 0.1 10^3/uL (0.0-0.1) 05/29/24 10:49 Nucleated RBC % (auto) 0 % 05/29/24 10:49 Nucleated RBCs # 0.0 /100WBC 05/29/24 10:49 ESR 4 mm/hr (0-15) 05/29/24 10:49 Sodium 137 mmol/L (136-145) 05/29/24 10:49 Potassium 4.5 mmol/L (3.5-5.1) 05/29/24 10:49 Chloride 104 mmol/L (98-107) 05/29/24 10:49 Carbon Dioxide 23 mmol/L (22-29) 05/29/24 10:49 Anion Gap 14.5 (5-19) 05/29/24 10:49 BUN 10 mg/dL (6-20) 05/29/24 10:49 Creatinine 0.7 mg/dL (0.5-0.9) 05/29/24 10:49 GFR Calculation 93.2 mL/min (90-130) 05/29/24 10:49 Glucose 101 mg/dL (65-115) 05/29/24 10:49 Calculated Osmolality 283 mOsm/kg (285-295) L 05/29/24 10:49 Calcium 9.3 mg/dL (8.5-10.5) 05/29/24 10:49 Total Bilirubin 0.4 mg/dL (0.15-1.2) 05/29/24 10:49 AST 23 U/L (0-32) 05/29/24 10:49 ALT 35 U/L (0-33) H 05/29/24 10:49 Alkaline Phosphatase 77 U/L (35-105) 05/29/24 10:49 Troponin T Baseline < 6 ng/L (0-10) 05/29/24 10:49 Troponin T 120 Minute 6.00 ng/L (0-10) 05/29/24 12:41 Delta Troponin T 0.01714 ABS# (0-10) 05/29/24 12:41 Total Protein 7.1 g/dL (6.6-8.7) 05/29/24 10:49 Albumin 4.2 g/dL (3.5-5.2) 05/29/24 10:49 Globulin 2.9 g/dL (1.3-4.6) 05/29/24 10:49 All radiology interpretation(s) finalized by discharge EKG Data EKG 1: Interpretation: Normal sinus rhythm with a rate of 89, normal KS interval of 155, QT 372. No acute ST changes noted. Computer generated interpretation: Chest X-Ray 05/29/24 10:45 IMPRESSION: No acute cardiopulmonary finding. Discharge Plan Discharge Patient Disposition: Home Clinical Impression: Postural dizziness with near syncope, Elevated blood pressure reading in office without diagnosis of hypertension Condition: Stable Prescriptions: No Action No Known Home Medications Discharge Orders: Discharge ED (Routine); Ordered 05/29/24 Ordered By: Jose L Swan Referrals: Lara Rico FNP [Primary Care Provider] - Patient Instructions: Opioid Safety, Pain Management Activity Restrictions/Additional Instructions: Thank you for choosing [facility] for your healthcare needs today. It is very important that you follow up as instructed or that you return to the Emergency Department should you have concerns or if your condition changes or worsens in any way. Print Language: [place] Citizen Coding Level of Care Code ED Medical Technologist for Halley Brooks
[2024-05-29 10:57] LABS: Basophils # 0.1 10^3/uL (0.0-0.1); Basophils % 0.7 %; Eosinophils # 0.3 10^3/uL (0.0-0.8); Eosinophils % 2.4 %; Hematocrit 44.1 % (36-47); Lymphocytes # 3.1 10^3/uL (0.8-4.8); Lymphocytes % 28.7 %; Mean Corpuscular HGB Conc 31.7 g/dL (30-55); Mean Corpuscular Hemoglobin 28.6 pg (27-33); Mean Corpuscular Volume 90.2 fl (85-98); Mean Platelet Volume 12.5 fL (7.4-10.4); Monocytes # 0.7 10^3/uL (0.2-0.9); Monocytes % 6.9 %; Neutrophils # 6.49 10^3/uL (1.8-7.7); Neutrophils % 60.9 %; Nucleated Red Blood Cells % 0 %; Platelet Count 193 10^3/cmm (157-399); Red Blood Count 4.89 10^6/uL (3.85-5.65); Red Cell Distribution Width 13.3 % (12.1-15.1); White Blood Count 10.68 10^3/uL (3.29-11.43)
[2024-05-29 10:59] LABS: Erythrocyte Sedimentation Rate 4 mm/hr (0-15)
--- NOTE | 2024-05-29 11:16 | PC.NURSE ---
PT asked this nurse to consult dr garcia. this nurse informed PT that it would be up to the ED physician to do a cardiac consult. PT stated that id dr garcia was not consulted she wanted to speak to the radha of medicine ED physician notified by this nurse
[2024-05-29 11:19] LABS: Alanine Aminotransferase 35 U/L (0-33); Albumin Level 4.2 g/dL (3.5-5.2); Alkaline Phosphatase 77 U/L (35-105); Aspartate Amino Transferase 23 U/L (0-32); Blood Urea Nitrogen 10 mg/dL (6-20); Calcium 9.3 mg/dL (8.5-10.5); Carbon Dioxide 23 mmol/L (22-29); Chloride 104 mmol/L (98-107); Creatinine Clr Calc Pharmacy 115.3647; Globulin 2.9 g/dL (1.3-4.6); Glomerular Filtration Rate 93.2 mL/min (90-130); Glucose 101 mg/dL (65-115); Osmolality Calculated 283 mOsm/kg (285-295); Sodium 137 mmol/L (136-145); Total Bilirubin 0.4 mg/dL (0.15-1.2); Total Protein 7.1 g/dL (6.6-8.7)
[2024-05-29 11:21] LABS: Anion Gap 14.5 (5-19); Potassium 4.5 mmol/L (3.5-5.1)
[2024-05-29 11:38] VITALS: BP 135/100; PULSE 105; O2SAT 95
--- NOTE | 2024-05-29 12:10 | ECG_ITS ---
[facility]: 2024-05[facility]29 Pat Name: Hui Alvarenga Department: Room: Gender: Female Program Host: : 1985 Requested By: Jose L Torres Order Number: [id number] Carmen MD: Ruel Castillo M.D. Measurements Intervals [place] Rate: 89 P: 46 CT: 155 QRS: 15 QRSD: 90 T: 17 QT: 372 QTc: 453 Interpretive Statements SINUS RHYTHM LOW QRS VOLTAGE IN PRECORDIAL LEADS [QRS DEFLECTION < 1.0 mV IN CHEST LEADS] INTERPRETATION BASED ON A DEFAULT AGE OF 40 YEARS Nonspecific T wave changes Compared to ECG 01/26/2024 15:36:51 Low QRS voltage now present Ventricular premature complex(es) no longer present Electronically Signed On 05-29-2024 18:50:09 CDT by Ruel Castillo M.D. [id number]
[2024-05-29 12:46] LABS: Troponin(5th) Baseline < 6 ng/L (0-10)
[2024-05-29 13:03] LABS: Troponin 5 2HR Delta 0.00001 ABS# (0-10)
--- NOTE | 2024-05-29 13:36 | PC.NURSE ---
PT refused vitals and refused to wait for discharge paperwork.
--- NOTE | 2024-05-29 14:12 | DCPLANNER ---
messaged heart care for er f/u
== END 2024-05-29 14:07 | disposition home or self-care (01) ==
PROVIDERS: Emergency Provider Family Medicine; PCP Nurse Practitioner Family
DX: R55 Syncope and collapse (principal); R42 Dizziness and giddiness; R03.0 Elevated blood-pressure reading, without diagnosis of hypertension; F17.210 Nicotine dependence, cigarettes, uncomplicated
CPT/HCPCS: 36415; 71045; 80053; 84484; 85025; 85651; 93005; 99285

== ENCOUNTER → 2024-05-30 09:06 | Outpatient (BNVA) | payer MEDICARE, MEDICAID, SELFPAY | PROVIDERS: PCP Nurse Practitioner Family; Visit Provider Internal Medicine | DX: Z45.018 Encounter for adjustment and management of other part of cardiac pacemaker (principal) | CPT/HCPCS: 93296 ==

== ENCOUNTER 2024-11-17 18:50 | Emergency (ER) | payer MEDICARE, MEDICAID, SELFPAY ==
[2024-11-17 19:00] VITALS: BP 152/96; PULSE 111; RESP 18; TEMP 36.7; O2SAT 100; BMI 35.4
--- OUTSIDE RECORDS SUMMARY | 2024-11-17 19:04 | XMS_ITS | Patient Health Record ---
Author Organization [facility] Billing Info Address [address] [place] [address] [place] [address] Care Team Providers Care Traveling Clerk Name Role Phone GAURI STOVER Primary Care Provider [phone] Allergies Allergen (clinical drug ingredient) Drug/Non Drug Allergy documented on EMR Reaction Allergy Type Onset Date Status ARTIFICIAL SWEETENER blisters tongue Drug Allergy Active GLUTEN Unknown Drug Allergy Active LATEX rash/burning Drug Allergy Acti ve Reason For Referral No Information Medications Medication SIG (Take, Route, Frequency, Duration) Notes Start Date End Date Status Vitamin B12 1000 MCG 1 tablet Orally Daily Active Probiotic -- 2 gummies Orally Daily Active Co Q-10 200 MG 1 capsule Orally Daily Active Vitamin D3 125 MCG (5000 UT) 1 capsule Orally Daily Active Midodrine HCl 10 MG 1 tablet Orally PRN 07/02/2020 Active Cyclobenzaprine HCl 5 MG 1 tablet at bed time as needed Orally Once a day for 14 day(s) 09/24/2020 Active Social History Tobacco Use: Social History Observation Description Date Details (start date - stop date) Current Smoker NA - NA Tobacco Status: Question Answer Notes Patient is a current every day smoker *DO NOT USE * Tobacco Status (CQW): Question Answer Notes How often do you smoke cigarettes? every day How many cigarettes a day do you smoke? 5 or les s Are you interested in quitting? Thinking about q uitting Type of Tobacco Use Cessation Provided Smoking e ffects education Patient Counseled on the Aly gers of Smoking and Urged to Quit 09/24/2020 Problems Problem Type SNOMED Code ICD Code Onset Dates Problem Status W/U Status Risk Notes Problem 661264192 B12 deficiency (E53.8) Active confirmed Problem 222649821 Hypothyroidism (acquired) (E03.9) Active confirmed Problem 03662705 Bradycardia (R00.1) Active confirmed Problem 748502283 Lupus (M32.9) Active confirmed Plan Of Treatment Pending Test Test Name Order Date SYSTEMIC LUPUS PROFILE (Q-) 018 Insurance Providers Payer Name Payer Address Payer Phone Subscriber Number Group Number Insured Name Patient Relationship to Insured Coverage Start Date Coverage End Date [place] [address] [address] [employer] [place], [place] [id number] Hui Tuttle Self - patient is the insured 7 FOR LIFE ALL [facility] [address] [place], [place] [id number] Hui Tuttle Self - patient is the insured 1 1 Medications Administered Medication Instructions Date of Administration Dosage Notes Dexamethasone Na Phosphate 10/12/2017 10 mg Triamcinolone Acetonide (Kenalog) 10/12/2017 40 mg Medical (General) History Medical History History ICD Code hx of celiac disease hx of cervical cancer at age 16 hx of depression/anxiety/PTSD lupus low blood pressure ER [facility] 08/27/22 R dent al pain, start taking naproxen, peridex, Hydrocodone/Acetaminophen, f/u dentist Surgical History Surgery Date(Month/Year) cryotherapy for cervical cancer 2003 emergency [facility] 2005 implantation internal ekg monitor tech 20 18 pacemaker implant -- [facility] 07/2020 Hospitalization History Reason Date(Month/Year) childbirth 2004, 2005, 2014 [facility]- [facility] [place] 2005 lupus related heart episode- [facility] B ANAIS Jeffries x2 2018
[2024-11-17 19:25] VITALS: BP 110/87; PULSE 92; RESP 18; O2SAT 98
--- NOTE | 2024-11-17 19:33 | W.ED.ALLEREA ---
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 She reports symptoms including tongue swelling, chest pain, headache, stomach ache, and severe diarrhea. The patient states this is not her first time experiencing tongue swelling of this severity, noting her tongue has 'split open before' and she is concerned about recurrence. She took Benadryl immediately after noticing her tongue starting to swell. Patient has an EpiPen but was unsure when to use it and did not want to use it unnecessarily. Patient denies itching, which she states is unusual for her allergic reactions. She mentions she typically avoids allergens. Related Data Previous Rx's ?Medication ?Instructions ?Recorded methylprednisolone 4 mg tablets in See Rx Instructions PO .COMPLEX 11/17/24 a dose pack (Medrol (Brayden)) #21 ea Allergies Allergy/AdvReac Type Severity Reaction Status Date / Time Latex, Natural Rubber Allergy Intermediate ALGY-Bliste Verified 05/29/24 10:38 r Alpha-Gal Allergy Unknown Verified 11/17/24 19:03 (Xxozxsgzq-Uuffi-0,3-Gala gluten Allergy ALGY-Swell Verified 05/29/24 10:38 Lip/Tongue/Throat spironolactone Allergy lethargy Verified 05/29/24 10:38 stevioside (From Stevia) Allergy ADR-Swelling Verified 10/08/24 20:56 of the Eye [facility] ED PFSH: Medical History PTSD (post-traumatic stress disorder) Anxiety and depression Frequent falls Brain fog Carpal tunnel syndrome Elevated blood pressure reading in office without diagnosis of hypertension Fatigue Screening for breast cancer Screening for cardiovascular condition Lupus CMS/HCC Surgical History History of loop recorder 2018 History of permanent cardiac pacemaker placement Placed 2020. Single-chamber Biotronik Family History Grandfather Stroke Father Stroke Hypertension Diabetes Cancer Prostate, Stomach, Lung, Skin, colon/ intestinal Bleeding disorder DVT with left leg amputation due to blood loss Social History Smoking and tobacco/nicotine status: current every day tobacco/nicotine user cigarettes Second hand smoke exposure: No Alcohol intake: current Alcohol intake frequency: holidays/special occasions only Alcohol type: wine Substance/Drug Use: never Household members: children Marital status: Legally Physical Exam Const: COMMON NORMALS: no acute distress GENERAL APPEARANCE: cooperative and anxious; not ill appearing and not frail appearing HENMT: COMMON NORMALS: normocephalic, atraumatic and Normal external nose present HEAD & SCALP: normocephalic and atraumatic FACE & SINUS: normal facial exam and face symmetric NOSE: Normal external nose present Eye: COMMON NORMALS: Equal, round and reactive pupils present and EOMs intact bilaterally PUPIL: Yes Equal, round and reactive pupils present Neck/C-Spine: GENERAL: Yes trachea midline Chest: CHEST: Yes Symmetrical chest wall rise Resp: COMMON NORMALS: normal respiratory effort, No retractions, No use of accessory muscles and clear to auscultation bilaterally AUSCULTATION: clear to auscultation bilaterally Cardio: COMMON NORMALS: regular rate and regular rhythm RATE: regular rate RHYTHM: regular rhythm GI: COMMON NORMALS: Normal to inspection, nondistended, normoactive bowel sounds present Extremity: COMMON NORMALS: no pedal edema Neuro: KAVITA COMA SCALE: document GCS findings [place] coma scale eye opening: Spontaneous [place] coma scale verbal response: Orientated Kavita coma scale motor response: Obey commands [place] coma scale total score: 15 SENSORY EXAM: Yes extremities (intact) Psych: COMMON NORMALS: speech normal SPEECH: Yes normal speech Skin: COMMON NORMALS: no rashes or lesions noted GENERAL SKIN EXAM: no rashes or lesions noted Course Vital Signs: Vital signs: Vital Signs Temperature 98.1 F 11/17/24 19:00 Pulse Rate 76 11/17/24 22:25 Respiratory Rate 18 11/17/24 21:20 Blood Pressure 136/91 11/17/24 22:25 Pulse Oximetry 97 11/17/24 22:25 Oxygen Delivery Me thod Room Air 11/17/24 21:20 MDM - Allergic Reaction Medical Decision Making 39-year-old female with tongue fullness, diarrhea, some anaphylactoid symptoms. She is improved after steroids Benadryl Ativan Pepcid. We did not have to use epinephrine. With improvement, she stable for discharge. Laboratory is not remarkable. Tapering dose of steroid. Benadryl as needed. Lab Data 11/17/24 19:20 11/17/24 21:09 Laboratory Results WBC 11.21 10^3/uL (3.29-11.43) 11/17/24 19:20 RBC 4.72 10^6/uL (3.85-5.65) 11/17/24 19:20 Hgb 13.40 g/dL (11.27-16.99) 11/17/24 19:20 Hct 41.5 % (36-47) 11/17/24 19:20 MCV 87.9 fl (85-98) 11/17/24 19:20 MCH 28.4 pg (27-33) 11/17/24 19:20 MCHC 32.3 g/dL (30-55) 11/17/24 19:20 RDW 13.5 % (12.1-15.1) 11/17/24 19:20 Plt Count 184 10^3/cmm (157-399) 11/17/24 19:20 MPV 13.0 fL (7.4-10.4) H 11/17/24 19:20 Neut % (Auto) 66.0 % 11/17/24 19:20 Lymph % (Auto) 25.0 % 11/17/24 19:20 Major % (Auto) 5.4 % 11/17/24 19:20 Eos % (Auto) 2.8 % 11/17/24 19:20 Baso % (Auto) 0.4 % 11/17/24 19:20 Neut # (Auto) 7.40 10^3/uL (1.8-7.7) 11/17/24 19:20 Lymph # (Auto) 2.8 10^3/uL (0.8-4.8) 11/17/24 19:20 Major # (Auto) 0.6 10^3/uL (0.2-0.9) 11/17/24 19:20 Eos # (Auto) 0.3 10^3/uL (0.0-0.8) 11/17/24 19:20 Baso # (Auto) 0.1 10^3/uL (0.0-0.1) 11/17/24 19:20 Nucleated RBC % (auto) 0 % 11/17/24 19:20 Nucleated RBCs # 0.0 /100WBC 11/17/24 19:20 Sodium 140 mmol/L (136-145) 11/17/24 21:09 Potassium 4.0 mmol/L (3.5-5.1) 11/17/24 21:09 Chloride 106 mmol/L (98-107) 11/17/24 21:09 Carbon Dioxide 24 mmol/L (22-29) 11/17/24 21:09 Anion Gap 14.0 (5-19) 11/17/24 21:09 BUN 10 mg/dL (6-20) 11/17/24 21:09 Creatinine 0.7 mg/dL (0.5-0.9) 11/17/24 21:09 GFR Calculation 92.7 mL/min (90-130) 11/17/24 21:09 Glucose 83 mg/dL (65-115) 11/17/24 21:09 Calculated Osmolality 288 mOsm/kg (285-295) 11/17/24 21:09 Calcium 9.1 mg/dL (8.5-10.5) 11/17/24 21:09 Magnesium 2.1 mg/dL (1.7-2.3) 11/17/24 21:09 Total Bilirubin 0.3 mg/dL (0.15-1.2) 11/17/24 21:09 AST 24 U/L (0-32) 11/17/24 21:09 ALT 36 U/L (0-33) H 11/17/24 21:09 Alkaline Phosphatase 82 U/L (35-105) 11/17/24 21:09 Total Protein 6.9 g/dL (6.6-8.7) 11/17/24 21:09 Albumin 4.0 g/dL (3.5-5.2) 11/17/24 21:09 Globulin 2.9 g/dL (1.3-4.6) 11/17/24 21:09 No radiology studies performed this visit Discharge Plan Discharge Patient Disposition: Home Clinical Impression: Allergic reaction Condition: Stable Prescriptions: New methylprednisolone [Medrol (Brayden)] 4 mg tablets,dose pack See Rx Instructions .ROUTE .COMPLEX Qty: 21 0RF Rx Instructions: orally per package directions Discharge Orders: Discharge ED (Routine); Ordered 11/17/24 Ordered By: Ritchie Quiroga Referrals: Lara Rico FNP [Primary Care Provider, [facility]] - 1-3 days Patient Instructions: General Allergic Reaction (ED), Opioid Safety, Pain Management, Patient Portal & Anna Marie Instructions Activity Restrictions/Additional Instructions: Take Benadryl scheduled 4 times daily for the next 24 to 48 hours. As needed following that. Steroid medication as prescribed. Return for any new or worsening symptoms. Print Language: [place]ian Coding Level of Care Code ED Residence Life Director for Halley Brooks
[2024-11-17] MEDS: ondansetron 2 mg/ML SDV 2 mL 4 MG IVP (19:43)
[2024-11-17 19:44] LABS: Hematocrit 41.5 % (36-47); Hemoglobin 13.40 g/dL (11.27-16.99); Mean Corpuscular HGB Conc 32.3 g/dL (30-55); Mean Corpuscular Hemoglobin 28.4 pg (27-33); Mean Corpuscular Volume 87.9 fl (85-98); Nucleated Red Blood Cells % 0 %; Platelet Count 184 10^3/cmm (157-399); Red Blood Count 4.72 10^6/uL (3.85-5.65); White Blood Count 11.21 10^3/uL (3.29-11.43)
[2024-11-17] MEDS: diphenhydrAMINE 50 mg/mL SDV 1mL IVP (19:45)
[2024-11-17] MEDS: methylPREDNISolone sod succ 125 mg/2 mL INJ 80 MG IVP (19:47)
[2024-11-17 20:01] VITALS: BP 124/85; PULSE 92; RESP 18; O2SAT 95
[2024-11-17] MEDS: LORazepam 1 MG/0.5 ML injection IVP (20:01)
[2024-11-17 21:20] VITALS: BP 133/86; PULSE 78; RESP 18; O2SAT 96
[2024-11-17 21:50] LABS: Alanine Aminotransferase 36 U/L (0-33); Albumin Level 4.0 g/dL (3.5-5.2); Alkaline Phosphatase 82 U/L (35-105); Anion Gap 14.0 (5-19); Aspartate Amino Transferase 24 U/L (0-32); Blood Urea Nitrogen 10 mg/dL (6-20); Calcium 9.1 mg/dL (8.5-10.5); Carbon Dioxide 24 mmol/L (22-29); Chloride 106 mmol/L (98-107); Creatinine Clr Calc Pharmacy 114.2225; Globulin 2.9 g/dL (1.3-4.6); Glucose 83 mg/dL (65-115); Magnesium 2.1 mg/dL (1.7-2.3); Osmolality Calculated 288 mOsm/kg (285-295); Potassium 4.0 mmol/L (3.5-5.1); Sodium 140 mmol/L (136-145); Total Protein 6.9 g/dL (6.6-8.7)
[2024-11-17 22:25] VITALS: BP 136/91; PULSE 76; O2SAT 97
== END 2024-11-17 22:25 | disposition home or self-care (01) ==
PROVIDERS: Emergency Provider Emergency Medicine; PCP Nurse Practitioner Family
DX: T78.40XA Allergy, unspecified, initial encounter (principal); X58.XXXA Exposure to other specified factors, initial encounter; F17.210 Nicotine dependence, cigarettes, uncomplicated
CPT/HCPCS: 36415; 80053; 83735; 85025; 96361; 96374; 96375; 99284; J1200; J2060; J2405; J2919; J3490; J7030